=== PATIENT | male | born 1945 | race Two or more races ===

== ENCOUNTER 2025-02-18 10:16 | Inpatient (IN) | payer MEDICARE ==
[~2025-02-18] VITALS: Ht 170.2 cm; Wt 87.0 kg
[2025-02-18] VITALS (9 sets, daily range): BP systolic 133–149; BP diastolic 54–72; PULSE 90–103; RESP 13–21; TEMP 97.4–98.7; O2SAT 90–95
--- NOTE | 2025-02-18 10:55 | ED.PDOC ---
HPI Comments 79y M who presents to the ED via EMS for chief complaint of chest pain. EMS states pt is being transferred for evaluation from [facility] after pt had noted NSTEMI with trop of 3150 last night PM. [place] been [place] and over the past 2x days, he has been having intermittent chest pain episodes and went to [facility] at approx 1230 AM last night. Pt states he has been having intermittent shortness of breath with associated L arm numbness. Pt states he thought symptoms were due to being at high elevation and only went to ED last night PM due to exacerbation of his symptoms. Pt otherwise denies any other symptoms upon arrival to the ED. Chief Complaint: chest pain Time Seen by MD: 10:51 Reviewed Notes: Medications, Allergies Information Source: Patient, Emergency Med Personnel Mode of Arrival: EMS Brought in by: EMS Severity: Moderate Timing: Days Duration: Since onset Prehospital treatment: None Location: Chest (R), Chest (L) Radiation: Arm (L) Quality: Sharp, Pressure Onset: At Rest Cardiac Risk Factors: Hyperlipidemia, HTN PE Risk Factors: None History of: Aortic Disease Modifying Factors: Exertion Associated Signs and Symptoms: SOB Past Medical History PAST MEDICAL HISTORY: High Lipids, HTN Surgical History: Hernia Repair Surgical History (Other): aortic valve repair Family History Family History: Family hx of heart yao Social History Smoker: Cigarettes Alcohol: Occasionally Drugs: Denies Drug Use Lives In: Home Constitutional: denies: chills, diaphoresis, fatigue, fever, malaise, sweats, weakness, others EENTM: denies: blurred vision, double vision, ear bleeding, ear discharge, ear drainage, ear pain, ear ringing, eye pain, eye redness, hearing loss, mouth pain, mouth swelling, nasal discharge, nose bleeding, nose congestion, nose pain, photophobia, tearing, throat pain, throat swelling, voice changes, others Respiratory: reports: shortness of breath; denies: cough, hemoptysis, orthopnea, SOB at rest, SOB with excertion, stridor, wheezing, others Cardiovascular: reports: chest pain; denies: dizzy spells, diaphoresis, Dyspnea on exertion, edema, irregular heart beat, left arm pain, lightheadedness, palpitations, PND, syncope, others Gastrointestinal: denies: abdomen distended, abdominal pain, blood streaked bowels, constipated, diarrhea, dysphagia, difficulty swallowing, hematemesis, melena, nausea, poor appetite, poor fluid intake, rectal bleeding, rectal pain, vomiting, others Genitourinary: denies: burning, dysuria, flank pain, frequency, hematuria, incontinence, penile discharge, penile sore, pain, testicle pain, testicle swelling, urgency, others Neurological: denies: dizziness, fainting, headache, left sided numbness, left sided weakness, numbness, paresthesia, pre-existing deficit, right sided numbness, right sided weakness, seizure, speech problems, tingling, tremors, weakness, others Musculoskeletal: denies: back pain, gout, joint pain, joint swelling, muscle pain, muscle stiffness, neck pain, others Integumetry: denies: bruises, change in color, change in hair/nails, dryness, laceration, lesions, lumps, rash, wounds, others Allergic/Immunocompromised: denies: Difficulty Healing, Frequent Infections, Hives, Itching, others Hematologic/Lymphatic: denies: anemia, blood clots, easy bleeding, easy bruising, swollen glands, others Endocrine: denies: excessive hunger, excessive sweating, excessive thirst, excessive urination, flushing, intolerance to cold, intolerance to heat, unexplained weight gain, unexplained weight loss, others Psychiatric: denies: anxiety, bipolar disorder, depression, hopeless, panic disorder, schizophrenia, sleepless, suicidal, others All Other Systems: Reviewed and Negative Physical Exam General Appearance: Moderate Distress HEENT: Normal ENT Inspection, Pharynx Normal, TMs Normal Neck: Full Range of Motion, Non-Tender, Normal, Normal Inspection Respiratory: Chest Non-Tender, Lungs Clear, No Accessory Muscle Use, No Respiratory Distress, Normal Breath Sounds Cardiovascular: No Edema, No JVD, No Murmur, No Gallop, Normal Peripheral Pulses, Regular Rate/Rhythm Breast Exam: Deferred Gastrointestinal: No Organomegaly, Non Tender, No Pulsatile Mass, Normal Bowel Sounds, Soft Genitalia: Deferred Pelvic: Deferred Rectal: Deferred Extremities: No calf tenderness, Normal capillary refill, Normal inspection, Normal range of motion, Non-tender, No pedal edema Musculoskeletal : Apperance: Normal Neurologic: Alert, appliance technician II-XII nml as Tested, No Motor Deficits, Normal Affect, Normal Mood, No Sensory Deficits Cerebellar Function: Normal Reflexes: Normal Skin: Dry, Normal Color, Warm Lymphatic: No Adenopathy EKG EKG : Pulse Rate (adult): 96 Verbena: Normal Cardiac Rhythm: NSR Block: None Hypertrophy: None ST: Normal Was a procedure done? Was a procedure done?: No CP Differential Dx Differential Diagnosis: A-fib, A-Flutter, Angina, Anxiety / Panic Attack, Electrolyte Disorder, Heart Failure, MS, Sinus Tachycardia Differential Diagnosis: HTN Essential, HTN Accelerated X-Ray, Labs, Meds, VS Vital Signs Date Time Temp Pulse Resp B/P (MAP) Pulse Ox O2 Delivery O2 Flow Rate FiO2 02/18/25 10:55 96 02/18/25 10:18 96 Lab Test 02/18/25 10:20 Range/Units White Blood Count 15.3 H 4.4-10.8 10^3/uL Red Blood Count 4.51 4.5-5.90 10^6/uL Hemoglobin 14.3 13.5-17.5 g/dL Hematocrit 42.2 41.0-53.0 % Mean Corpuscular Volume 93.5 80.0-100.0 fL Mean Corpuscular Hemoglobin 31.7 28.0-32.0 pg Mean Corpuscular Hemoglobin Concent 33.9 32.0-36.0 g/dL Red Cell Distribution Width 13.1 11.8-14.3 % Platelet Count 176 140-450 10^3/uL Mean Platelet Volume 9.3 6.9-10.8 fL Neutrophils (%) (Auto) 85.9 H 37.0-80.0 % Lymphocytes (%) (Auto) 7.5 L 10.0-50.0 % Monocytes (%) (Auto) 6.3 0.0-12.0 % Eosinophils (%) (Auto) 0.2 0.0-7.0 % Basophils (%) (Auto) 0.1 0.0-2.0 % Neutrophils # (Auto) 13.1 H 1.6-8.6 10 ^3/uL Lymphocytes # (Auto) 1.1 0.4-5.4 10 ^3/uL Monocytes # (Auto) 1.0 0-1.3 10 ^3/uL Eosinophils # (Auto) 0 0-0.8 10 ^3/uL Basophils # (Auto) 0 0-0.2 10 ^3/uL Nucleated Red Blood Cells 0.2 % Sodium Level 143 136-145 mmol/L Potassium Level 4.4 3.5-5.1 mmol/L Chloride Level 110 H 98-107 mmol/L Carbon Dioxide Level 21 20-31 mmol/L Anion Gap 12 5-15 Blood Urea Nitrogen 16 9-23 mg/dL Creatinine 1.10 0.700-1.30 mg/dL Glomerular Filtration Rate Calc 68 >90 mL/min BUN/Creatinine Ratio 14.5 10.0-20.0 Serum Glucose 102 74-106 mg/dL Calcium Level 9.1 8.7-10.4 mg/dL Troponin I High Sensitivity 2734 *H </=54 ng/L IV Hep-Lock was established. The CBC and chemistry panel are within normal limits The troponin level is 2734 We did contact Cardiology and they will be consulting on this patient. The patient is being admitted at this time. The results from [place] have, over and the patient will be admitted and seen by the sleeve baster at this time. Images Reviewed?: Images reviewed and evaluated by me Time of 1ST Reevaluation: 11:20 Reevaluation 1ST: Unchanged Patient Education/Counseling: Diagnosis, Treatment, Prognosis Family Education/Counseling: No Family Present SEPSIS Sepsis Screen Physician Orders Heplock Iv (02/18/25 10:33) Vital Signs Date Time Temp Pulse Resp B/P (MAP) Pulse Ox O2 Delivery O2 Flow Rate FiO2 02/18/25 10:55 96 02/18/25 10:18 96 Laboratory Tests Test 02/18/25 10:20 White Blood Count 15.3 10^3/uL (4.4-10.8) H Departure 1 Departure Time of Disposition: 11:22 Impression: Primary Impression: Non-STEMI (non-ST elevated myocardial infarction) Disposition: 09 ADMITTED INPATIENT Admit to: Tele Condition: Fair Critical Care Note Critical Care Time?: Yes (45 min-critical care time only) Stability Stability form required: Yes Unstable for transfer: ICU, CCU, PCU, JENY (Intensive VS monitoring), ED Physician Assesment (Clinical assesment) Heart Score Heart Score: Heart Score Response (Comments) Value History Moderate Suspicious 1 EKG Normal 0 Age >65 2 Risk Factors >3 or Hx ASHD 2 Troponin >3 x's Normal limit 2 Total 7 I personally scribed for URI RIDDLE MD ([email or web address]) on 02/18/25 at 10:55. Electronically submitted by Bryce Ochoa ([email or web address]). URI RIDDLE MD Feb 18, 2025 10:55
[2025-02-18 10:58] LABS: Hematocrit 42.2 % (41.0-53.0); Hemoglobin 14.3 g/dL (13.5-17.5); Mean Corpuscular Hemoglobin 31.7 pg (28.0-32.0); Mean Corpuscular Volume 93.5 fL (80.0-100.0); Nucleated Red Blood Cells % 0.2 %
[2025-02-18 11:07] LABS: Potassium 4.4 mmol/L (3.5-5.1); Sodium 143 mmol/L (136-145)
[2025-02-18 11:08] LABS: Anion Gap 12 (5-15); Calcium 9.1 mg/dL (8.7-10.4); Carbon Dioxide 21 mmol/L (20-31)
[2025-02-18 11:09] LABS: Chloride 110 mmol/L (98-107)
[2025-02-18 11:13] LABS: BUN/Creatinine Ratio 14.5 (10.0-20.0); Blood Urea Nitrogen 16 mg/dL (9-23); Glucose 102 mg/dL (74-106)
--- NOTE | 2025-02-18 11:23 | ECG ---
[facility] Test Date: 2025-02-18 Test Time: 11:22:35 Pat Name: KESHA RAYA Department: ER Room: 0274T Gender: M Paper Deliverer: GP : 1945 Requested By: URI RIDDLE Order Number: [id number] Reading MD: Boo Enamorado Measurements Intervals [place] Rate: 96 P: 80 IL: 266 QRS: 58 QRSD: 91 T: -90 QT: 284 QTc: 359 Interpretive Statements Sinus rhythm Prolonged IL interval Probable LVH with secondary repol abnrm Electronically Signed On 02-19-2025 22:17:21 PDT by Boo Enamorado Please click the below link to view image of tracing.
--- NOTE | 2025-02-18 12:08 | DVHINCON2 ---
Date Seen: Feb 18, 2025 Referring Physician MD Mariposa Reason for Consultation NSTEMI History of Present Illness This is a pleasant 79-year-old male who was transferred from [facility] via EMS to our facility for higher level of care given elevated troponin levels. The patient who is originally from [place] states he flew to [place] with his and have been road tripping since to [facility], [place], and [facility] with an end goal to reach [place], [place] in order to continue onto a cruise trip to the [facility]. While driving he developed an onset of SOB, dizziness, left arm numbness, nausea, and some substernal chest discomfort which prompted to seek further medical attention. Denies any ambulation and admits to prolonged sitting. Blood work from [facility] revealed an unremarkable CXR, BNP 634 pg/mL, Troponin levels at 1.93/2.38/2.50 ng/mL, and 12 lead electrocardiogram revealing a sinus rhythm with a associated first-degree atrioventricular block and inferolateral ST- depression. He was loaded on ASA 324 mg at aforementioned facility. Significant medical history includes severe aortic valve stenosis status post transcatheter aortic valve replacement at [facility] in [place] in 2019 (on ASA), hypertension, and dyslipidemia. Past Medical History Past medical history reviewed. No other significant than mentioned above. Past Surgical History TAVR, 2019 Umbilical hernia repair Family History Family history reviewed. Social History Denies the use of illicit drugs, alcohol, or tobacco use. Allergies: Coded Allergies: Simvastatin (Verified Allergy, Unknown, 02/18/25) Home Meds Home medications reviewed. Review of Systems Constitutional: No symptom reported Ears, Nose, & Throat: No symptom reported Eyes: No symptom reported Neurological: Dizziness Pulmonary/Respiratory: SOB Cardiovascular: Chest pain Gastrointestinal: Nausea Genitourinary: No symptom reported Musculoskeletal: No symptom reported Skin: No symptom reported Psychiatric: No symptom reported Endocrine: No symptom reported Hemotologic/Lymphatic: No symptom reported Vital Signs Vital Signs Date Time Temp Pulse Resp B/P (MAP) Pulse Ox O2 Delivery O2 Flow Rate FiO2 02/18/25 11:10 97.9 97 16 156/50 95 97.9 Physical Exam General Appearance: Cooperative. Well developed. Well nourished. In no acute distress Head Exam: Normal inspection Neck Exam: Normal inspection. Non-tender. Normal alignment Pulmonary/Respiratory: Chest non-tender. Diminished bilateral breath sounds Cardiovascular/Chest: Regular rate and rhythm. S1, S2. Sinus rhythm with T- wave depression to inferolateral leads. Systolic murmurs. No JVD. Peripheral Pulses: 2+ Radial (R). 2+ Radial (L). 2+ Pedal (R). 2+ Pedal (L) Abdominal Exam: Normal bowel sounds. Soft. Ankle Exam: Negative ankle edema Lower extremities: Negative lower extremity edema Neuro/Mental Status: A&O x4. Coherent Thoughts/Psych: Normal thought pattern. Appropriate mood and affect. Good judgement and insight. Pleasant Appearance: In no acute distress Skin Exam: Normal inspection. Normal color. Warm. Dry Labs/Diagnostic Data Labs Test 02/18/25 10:20 Range/Units White Blood Count 15.3 H 4.4-10.8 10^3/uL Red Blood Count 4.51 4.5-5.90 10^6/uL Hemoglobin 14.3 13.5-17.5 g/dL Hematocrit 42.2 41.0-53.0 % Mean Corpuscular Volume 93.5 80.0-100.0 fL Mean Corpuscular Hemoglobin 31.7 28.0-32.0 pg Mean Corpuscular Hemoglobin Concent 33.9 32.0-36.0 g/dL Red Cell Distribution Width 13.1 11.8-14.3 % Platelet Count 176 140-450 10^3/uL Mean Platelet Volume 9.3 6.9-10.8 fL Neutrophils (%) (Auto) 85.9 H 37.0-80.0 % Lymphocytes (%) (Auto) 7.5 L 10.0-50.0 % Monocytes (%) (Auto) 6.3 0.0-12.0 % Eosinophils (%) (Auto) 0.2 0.0-7.0 % Basophils (%) (Auto) 0.1 0.0-2.0 % Neutrophils # (Auto) 13.1 H 1.6-8.6 10 ^3/uL Lymphocytes # (Auto) 1.1 0.4-5.4 10 ^3/uL Monocytes # (Auto) 1.0 0-1.3 10 ^3/uL Eosinophils # (Auto) 0 0-0.8 10 ^3/uL Basophils # (Auto) 0 0-0.2 10 ^3/uL Nucleated Red Blood Cells 0.2 % Sodium Level 143 136-145 mmol/L Potassium Level 4.4 3.5-5.1 mmol/L Chloride Level 110 H 98-107 mmol/L Carbon Dioxide Level 21 20-31 mmol/L Anion Gap 12 5-15 Blood Urea Nitrogen 16 9-23 mg/dL Creatinine 1.10 0.700-1.30 mg/dL Glomerular Filtration Rate Calc 68 >90 mL/min BUN/Creatinine Ratio 14.5 10.0-20.0 Serum Glucose 102 74-106 mg/dL Calcium Level 9.1 8.7-10.4 mg/dL Troponin I High Sensitivity 2734 *H </=54 ng/L Assessment NSTEMI, questionable type 1 Chest pain/SOB rule out PE Rule out structural heart disease Status post TAVR (on ASA) Hypertension Dyslipidemia Plan/Recommendation (Dr. Enamorado) Given recent travels and prolonged sitting we will obtain a CT angio with contrast to rule out a PE. In the meantime, initiate a heparin drip per pharmacy protocol including loading dose. Obtain a transthoracic echocardiogram to evaluate cardiac function and assess RV pressures. In the setting of a negative PE, the patient will be scheduled for a cardiac catheterization and coronary angiogram at first available. All risks and benefits of the procedure were discussed with the patient and at bedside who agree to proceed with in tervention. All questions answered. Initiate renal hydration. Further orders per clinical course. Thank you for allowing us to participate in this patient's care. Please call if you have any questions or concerns. Critical care time: 50 min. This medical document was created using an electronic medical record system with voice recognition software and computerMy Own Med d dictation system. Although this document has been carefully reviewed, there might still be some phonetic and typographical errors. Occasional wrong-word or ``sound-alike substitutions may have occurred due to the inherent limitations of voice recognition software. These areas are purely typographical due to imperfections of the software programs and do not reflect any compromise in the patient's medical care. Please read the chart carefully and recognize, using context, where these substitutions have occurred. Plan discussed with: Patient, Spouse, Other NYHA Physical activity limitations: NA Date of Service: Feb 18, 2025 Billing Provider: ABREU,YEMI SUPERVISOR WINTER Cardiology Common Codes: 79752-BUSRECVT CARE 30-74 MIN YEMI ABREU SUPERVISOR WINTER Feb 18, 2025 12:08
[2025-02-18] MEDS ORDERED: HEPARIN DRIP/D5W 100UNITS/ML 250 ML IV SCH (12:15)
[2025-02-18] MEDS ORDERED: HEPARIN SODIUM (PORCINE) 5000 UNITS/ML 1ML VIAL IV ONE (12:15)
[2025-02-18] MEDS: IOHEXOL 350 MG/ML 100ML IJ ONE (12:24)
--- NOTE | 2025-02-18 13:14 | DVH ---
Bilateral lower extremity venous duplex Clinical History: Edema Comparison: None Findings: Duplex Doppler evaluation of the deep venous systems of both lower extremities from the common femora l veins to the popliteal veins including color Doppler and spectral/pulsed waveform analysis was perf ormed. RIGHT SIDE: The common femoral vein demonstrates appropriate compressibility and waveform variability. There is compressibility/patency of the great saphenous vein at the proximal thigh. The femoral vein demonstrates appropriate compressibility and waveform variability. The deep femoral vein demonstrates appropriate compressibility and waveform variability. The popliteal vein demonstrates appropriate compressibility and waveform variability. There is normal compressibility at the tibioperoneal trunk. LEFT SIDE: The common femoral vein demonstrates appropriate compressibility and waveform variability. There is compressibility/patency of the great saphenous vein at the proximal thigh. The femoral vein demonstrates appropriate compressibility and waveform variability. The deep femoral vein demonstrates appropriate compressibility and waveform variability. The popliteal vein demonstrates appropriate compressibility and waveform variability. There is normal compressibility at the tibioperoneal trunk. IMPRESSION: No right or left femoropopliteal venous thrombosis. If clinical concern/symptoms persist or worsen, short-interval follow-up study is suggested. END IMPRESSION:
[2025-02-18 13:26] LABS: Hematocrit 42.9 % (41.0-53.0); Hemoglobin 14.7 g/dL (13.5-17.5); Mean Corpuscular Hemoglobin 31.9 pg (28.0-32.0); Mean Corpuscular Volume 93.1 fL (80.0-100.0); Nucleated Red Blood Cells % 0.1 %
[2025-02-18 13:38] LABS: Triglycerides 93.0 mg/dL (< 150)
[2025-02-18 13:39] LABS: Magnesium 2.0 mg/dL (1.6-2.6)
[2025-02-18 13:40] LABS: Cholesterol 157.0 mg/dL (< 200); HDL Cholesterol 54.0 mg/dL (40-59)
[2025-02-18 13:41] LABS: INR 1.0 (0.9-1.15); Partial Thromboplastin Time 28.1 SEC (24.5-34.5); Prothrombin Time 10.6 sec (9.3-11.8)
[2025-02-18] MEDS ORDERED: NITROGLYCERIN 0.4 MG SL TAB SL PRN ×2 (14:00→19:30)
[2025-02-18] MEDS ORDERED: MORPHINE SULFATE 4 MG/ML SYR/VIAL IV PRN (14:30)
--- NOTE | 2025-02-18 14:47 | DVH ---
CTA Chest with intravenous contrast INDICATION: Chest pain/SOB rule out PE COMPARISON: None TECHNIQUE: Multidetector spiral CTA of the chest was performed of the chest with intravenous contrast . PULMONARY ANGIOGRAPHY PROTOCOL was utilized using a bolus-tracking technique centered on the main p ulmonary artery. Axial, coronal and sagittal multiplanar and MIP reformats were performed. Radiation Dose : 1. Chest: Dose-length product is 99 mGy*cm The dose indicators for CT are the volume Computed Tomography (CT) Dose Index (CTDIvol) and the Dose Length Product (DLP), and are measured in units of mGy and mGy-cm, respectively. These indicators are not patient dose, but values generated from the CT scanner acquisition factors. The report includes radiation exposure data for exposures received during this examination. Findings: Pulmonary artery: No pulmonary embolism Lower neck: Normal thyroid. Lungs: Bibasilar consolidations may reflect pneumonia or aspiration. Heart/Vascular Structures: Normal heart size. No pericardial effusion. Lymph Nodes: No adenopathy Pleura: Small bilateral pleural effusions. Musculoskeletal: No acute osseous abnormality. Soft tissues: Normal. Upper abdomen: Limited portions of the upper abdomen are unremarkable. IMPRESSION: 1. No pulmonary embolism. 2. Bibasilar consolidations may reflect pneumonia or aspiration. 3. Small bilateral pleural effusions.
[2025-02-18] MEDS: ANGIOMAX 250 MG VIAL IV ONE ×2 (16:42→18:16)
[2025-02-18] MEDS: fentaNYL CITRATE 100 MCG/2 ML VL ONE (16:43)
[2025-02-18] MEDS: HEPARIN SODIUM (PORCINE) 5000 UNITS/ML 1ML VIAL ONE (16:43)
[2025-02-18] MEDS: MIDAZOLAM HCL 2MG/2ML 2ml VIAL (1mg/ml) ONE (16:43)
[2025-02-18] MEDS: SODIUM CHL 0.9% 50 ML ONE ×2 (16:43→18:16)
[2025-02-18] MEDS: VERAPAMIL 2.5MG/ML INJ 2ML VIAL IV ONE (16:43)
[2025-02-18] MEDS: LIDOCAINE 2%HCL (LOCAL ANESTH.) INJ 20ML MDV ONE (16:44)
[2025-02-18] MEDS: IODIXANOL 320MG/ML 100ML BTL IV ONE ×3 (16:44→18:50)
[2025-02-18] MEDS: SODIUM CHLORIDE 0.9% 500 ML IV ONE (18:00)
[2025-02-18] MEDS: CLOPIDOGREL BISULFATE 75 MG TAB ONE (19:12)
[2025-02-18] MEDS ORDERED: MORPHINE SULFATE INJ 2 MG/ml SYRG IV PRN (19:30)
[2025-02-18] MEDS: METOPROLOL SUCCINATE XL 50 MG TAB PO ONE (19:45)
--- NOTE | 2025-02-18 19:50 | DVHSR ---
APPROVED REPORT EXAM: Two-dimensional and M-mode echocardiogram with Doppler and color Doppler. Blood Pressure: 155/56 mmHg INDICATION PE vs CAD Surgery/Intervention Valve Replacement: Bioprosthetic Type: TAVR RISK FACTORS Height: 5'8", Weight: 175 DIMENSIONS LVDd5.1 (3.8-5.7cm)LA (2D)3.8 (1.9-4.0cm)Aortic Root (2.0-3.7cm) LVDs3.4 (2.5-4.0cm)LA (MM) (1.9-4.0cm)Aortic Cusp Exc (1.5-2.0cm) EF (%) 55.0 (55-70%)Rt. Atrium3.7 (1.9-4.0cm)Asc. Aorta cm IVSd1.3 (0.7-1.1cm)RV (D)3.7 (1.8-2.4cm) PWd1.1 (0.7-1.1cm) Mitral Valve MitralMitral Stenosis E/A ratio0.02D MVAcm2 Aortic Valve Aortic ValveAortic Stenosis V11.16m/Gwyn Mean GR.11mmHg V22.50m/Gwyn Peak GR.25mmHg LVOT Diameter1.7 (1.8-2.4cm)Doppler AVA1.05cm2 Pulmonic Valve V20.65m/s Other Information Technically limited study due to body habitus. Conclusion Technically good study. Sinus rhythm. LV enlargement. Mild RV enlargement. There is a TAVR valve present. There was no apparent dysfunction. The mitral tricuspid and pulmonic or structurally normal. Left ventricular function mildly diminished. There was a dilated left ventricle. EF is about 45% wi th mild global hypokinesis. Normal RV function. A peak gradient of 25 mmHg across the aortic valve is noted consistent with the prosthetic valve. Me an gradient is 11 mmHg. No apparent dysfunction noted. Mild tricuspid regurgitation. No pericardial effusion masses or vegetations discernible.
--- NOTE | 2025-02-18 19:57 | DVHOP2 ---
Operative Report - 2 Report Details Date: 02/18/25 Preop Diagnosis: CAD Postop Diagnosis: CAD Surgeon: Surya Enamorado MD Anesthesiologist: Conscious sedation Anesthesia: Mac, Local Consent: The patient was informed of the risks and benefits of the procedure. These include but are not limited to complications of anesthesia, postoperative infection, incomplete relief of symptoms, recurrence of symptoms, damage to blood vessels, nerves and tendons, deep venous thrombosis, pulmonary embolism and possible need for repeat surgery in the future. Complications: No complications Findings: Left main disease and LAD disease. Indications for Surgery: Shortness of breath and acute coronary syndrome. Name of Procedure Performed Left heart catheterization bilateral cine coronary angiography. Left ventriculography. PTCA and stenting of the left main. PTCA and stenting of the LAD and diagonal. Intravascular ultrasound of left main and LAD. Procedure Details Procedure Details: Prior local anesthesia with 2% lidocaine to the right wrist and full informed consent obtained the patient was prepped and draped in usual fashion followed by placement of a six Icelandic sheath into the radial artery. We then placed a multipurpose catheter into the RCA left main left ventricle. After evaluation proceeded to perform angioplasty and intravascular ultrasound of left main and LAD. Hemodynamics aortic blood pressure was 110/70 end-diastolic pressure was 12. There was no gradient across the aortic valve on pullback. Coronary anatomy. The RCA is a large vessel it is normal in its proximal mid and distal segments. The PDA and the posterolateral branches are normal. The left main has an ostial 80% stenosis on angiographic perspective. I ntravascular ultrasound revealed less than a five mm squared area. The left anterior descending coronary artery has a hazy lesion at the level of the diagonal. There was WALTER two flow. The diagonal has mild plaquing. The circumflex has two obtuse marginals free of significant disease. Ventriculography in the CANNON projection shows an EF of about 45% with global hypokinesis. Angioplasty was performed for which a three five EBU guide was placed through was struck within the aortic valve into the left main. A Specter wire was then placed across the area of stenosis in an intravascular ultrasound device was used to evaluate the LAD and left main. We noticed a significant stenosis in the LAD. We proceeded to place a 4-0 18 rosalind [place] stent to the LAD. This was performed at a proximally 16 atmospheres. We verified with the volcano ultrasound device that there was excellent apposition of the stent with the LAD. We then performed stenting of the left main. We placed a 4-0 by 8 mm Medtronic stent and we post dilated with a noncompliant 5 mm Euphora stent. This was inflated to approximately 18 atmospheres. We noticed a residual lesion in the diagonal. We performed angioplasty of the diagonal through the struts. There was notable improvement in flow. Impression: Successful PTCA stenting of the left main and LAD post intravascular ultrasound evaluation. Mildly decreased left ventricular ejection fraction. Mildly elevated left ventricular end-diastolic pressure at rest. Recommendations: Dual antiplatelet therapy. Continue risk factor modification. Condition Good Disposition Still a Patient Date of Service: Feb 18, 2025 Billing Provider: SURYA ENAMORADO Sr., MD Cardiology Common Codes: 96692-[id number] INP/OBS CARE (High) Cardiology Procedure Codes: 64314 -PTCA W/STENT PLACEMENT (Intravascular ultrasound of the left main and LAD.), 44674-AXSU HEART CATH W/INTRA INJ Peripheral Add ons: [id number] TIBIAL/PERON ARTERY SURYA ENAMORADO Sr., MD Feb 18, 2025 19:57
--- NOTE | 2025-02-18 20:05 | DVHHPRES ---
History of Present Illness Resident Creating Document: PEDRO SALAS History of Present Illness Patient is a 79-year-old male with past medical history of hypertension, hyperlipidemia and prior aortic valve replacement , presented to [facility] ED with complaint of shortness of breath. Patient reports that he had shortness of breath that began 2 days ago after prolonged driving with significant altitude change. He described the shortness breath as requiring deeper breaths and states that it worsened when lying flat but improve when sitting up. He denies experiencing typical chest pain but reports mild chest pressure in sensation of discomfort. He also complained with mild dizziness, light coughing without phlegm. Blood work from [facility] revealed an unremarkable CXR, BNP 634 pg/mL, Troponin levels at 1.93/2.38/2.50 ng/mL, and 12 lead electrocardiogram revealing a sinus rhythm with a associated first-degree atrioventricular block and inferolateral ST-depression. He was loaded on ASA 324 mg at aforementioned facility. Patient denies sweating, nausea and vomiting. Cardiovascular: HTN, hyperipidemia Past Surgical History severe aortic valve stenosis status post transcatheter aortic valve replacement at [facility] in [place] in 2019 (on ASA), Umbilical hernia repair Family History: None Smoke: No ALCOHOL: none Drugs: None Review of Systems Review of Systems Eyes: No Pain, No Vision change, No Conjunctivae inflammation, No Eyelid inflammation, No Other, No Redness ENT: No Ear pain, No Ear discharge, No Nose pain, No Nose discharge, No Nose congestion, No Mouth pain, No Mouth swelling, No Throat pain, No Throat sw elling, No Other Cardiovascular: Chest Pain, No Palpitations, No Orthopnea, No Paroxysmal No Dyspnea, No Edema, No Lt Headedness, No Other Respiratory: No Cough, No Dry, Shortness of breath, SOB with exertion, No Wheezing, No Hemoptysis, No Pleuritic Pain, No Sputum, No Other Gastrointestinal: Nausea, No Vomiting, No Abdominal Pain, No Diarrhea, No Constipation, No Melena, No Hematochezia, No Other Genitourinary: No Dysuria, No Frequency, No Incontinence, No Hematuria, No Retention, No Other Musculoskeletal: No other, No neck pain, No shoulder pain, No arm pain, No back pain, No hand pain, No leg pain, No foot pain Skin: No Rash, No Lesions, No Jaundice, No Bruising, No Other Allergies: Coded Allergies: Simvastatin (Verified Allergy, Unknown, 02/18/25) Medications Current Medications Medications Dose Ordered Sig/Viktoria Route Start Time Stop Time Status Last Admin Dose Admin Nitroglycerin 0.4 mg Q5MINP PRN SL 02/18/25 14:00 Morphine Sulfate 2 mg Q30M PRN IV 02/18/25 14:30 Nitroglycerin 0.4 mg Q5MINP PRN SL 02/18/25 19:30 UNV Morphine Sulfate 2 mg Q30M PRN IV 02/18/25 19:30 UNV Aspirin 81 mg DAILY PO 02/19/25 10:00 UNV Clopidogrel Bisulfate 75 mg DAILY PO 02/19/25 10:00 UNV Levalbuterol HCl 0.625 mg Q6HWA [facility] 02/19/25 06:00 UNV Ceftriaxone Sodium 50 ml @ 100 mls/hr DAILY@09 IV 02/19/25 09:00 UNV Doxycycline Monohydrate 100 mg Q12HR PO 02/18/25 22:00 UNV Ipratropium [place] 0.5 mg Q6HWA [facility] 02/19/25 06:00 UNV Enoxaparin Sodium 40 mg DAILY SC 02/19/25 10:00 UNV Metoprolol Succinate 25 mg DAILY PO 02/19/25 10:00 UNV Atorvastatin Calcium 80 mg HS PO 02/18/25 22:00 UNV Exam Vital Signs Vital Signs Date Time Temp Pulse Resp B/P (MAP) Pulse Ox O2 Delivery O2 Flow Rate FiO2 02/18/25 16:43 137/68 02/18/25 13:00 102 12 94 02/18/25 11:21 98.0 98.0 02/18/25 11:20 Nasal Cannula* 2 28 Exam General Appearance: Cooperative. Well developed. Well nourished. NAD Head Exam: Normal inspection Neck Exam: Normal inspection. Non-tender. Normal alignment Pulmonary/Respiratory: Chest non-tender. Clear bilateral breath sounds, no crackles, no wheezing. Cardiovascular/Chest: Regular rate and rhythm. No murmurs. No JVD. Peripheral Pulses: 2+ Radial (R). 2+ Radial (L). 2+ Pedal (R). 2+ Pedal (L) Abdominal Exam: Normal bowel sounds. Soft. normal abdomen, no visible veins, Nontender. No hepatospenomegaly. No masses Ankle Exam: Negative ankle edema Lower extremities: Negative lower extremity edema Neuro/Mental Status: A&O x4. Coherent. Thoughts/Psych: Normal thought pattern. Appropriate mood and affect. Good judgement and insight Skin Exam: Normal inspection. Normal color. Warm. Dry Labs/Xrays Labs Test 02/18/25 13:14 02/18/25 10:20 Range/Units White Blood Count 15.6 H 4.4-10.8 10^3/uL Red Blood Count 4.61 4.5-5.90 10^6/uL Hemoglobin 14.7 13.5-17.5 g/dL Hematocrit 42.9 41.0-53.0 % Mean Corpuscular Volume 93.1 80.0-100.0 fL Mean Corpuscular Hemoglobin 31.9 28.0-32.0 pg Mean Corpuscular Hemoglobin Concent 34.3 32.0-36.0 g/dL Red Cell Distribution Width 13.5 11.8-14.3 % Platelet Count 177 140-450 10^3/uL Mean Platelet Volume 8.9 6.9-10.8 fL Neutrophils (%) (Auto) 86.4 H 37.0-80.0 % Lymphocytes (%) (Auto) 6.4 L 10.0-50.0 % Monocytes (%) (Auto) 6.9 0.0-12.0 % Eosinophils (%) (Auto) 0.1 0.0-7.0 % Basophils (%) (Auto) 0.2 0.0-2.0 % Neutrophils # (Auto) 13.5 H 1.6-8.6 10 ^3/uL Lymphocytes # (Auto) 1.0 0.4-5.4 10 ^3/uL Monocytes # (Auto) 1.1 0-1.3 10 ^3/uL Eosinophils # (Auto) 0 0-0.8 10 ^3/uL Basophils # (Auto) 0 0-0.2 10 ^3/uL Nucleated Red Blood Cells 0.1 % Prothrombin Time 10.6 9.3-11.8 sec Prothrombin Time INR 1.0 0.9-1.15 Activated Partial Thromboplast Time 28.1 24.5-34.5 SEC Magnesium Level 2.0 1.6-2.6 mg/dL B-Type Natriuretic Peptide 993.70 0-100 pg/mL Triglycerides Level 93 < 150 mg/dL Cholesterol Level 157 < 200 mg/dL LDL Cholesterol 94 < 100 mg/dL HDL Cholesterol 54 40-59 mg/dL Thyroid Stimulating Hormone (TSH) 2.95 0.55-4.78 uIU/mL Sodium Level 143 136-145 mmol/L Potassium Level 4.4 3.5-5.1 mmol/L Chloride Level 110 H 98-107 mmol/L Carbon Dioxide Level 21 20-31 mmol/L Anion Gap 12 5-15 Blood Urea Nitrogen 16 9-23 mg/dL Creatinine 1.10 0.700-1.30 mg/dL Glomerular Filtration Rate Calc 68 >90 mL/min BUN/Creatinine Ratio 14.5 10.0-20.0 Serum Glucose 102 74-106 mg/dL Calcium Level 9.1 8.7-10.4 mg/dL Troponin I High Sensitivity 2734 *H </=54 ng/L SEPSIS Sepsis Screen Date sepsis recognized/suspect: Feb 18, 2025 Time Sepsis recognized/suspect: 1119 Recent Procedure: No On Antibiotic Therapy: No Respiratory Rate >20: No Heart Rate >90: Yes Temp<36 C (96.8 F) or >38.3 C: No SBP <90 or MAP <65 mmHG: No New Acute Mental Status Change: No Is the patient on CPAP, BIPAP,: No Physician Orders Bilat Lower Dvt (02/18/25 12:08) Ct Angio Chest Contrast (02/18/25 12:08) Echo 2d Mode Cardiac Dop (02/18/25 13:42) Nitroglycerin Sublingual (Ntrostat Subli (02/18/25 14:00) Notify Md Of Changes From Base (02/18/25 13:48) Manager Urgent Care For 24 Hours (02/18/25 13:48) Emergency Dysrhythmia Protocol (02/18/25 13:48) Rhythm Strips Once Every Shift (02/18/25 13:48) Oxygen By Nasal Cannula (02/18/25 13:48) Cl Left Heart Cath (02/18/25 13:55) Morphine Sulfate Injection (02/18/25 14:30) Heparin Per Pharmacy Protocol (02/18/25 18:02) Admit (02/18/25 19:27) Nitroglycerin Sublingual (Ntrostat Subli (02/18/25 19:30) Morphine Sulfate Injection (02/18/25 19:30) Oxygen By Nasal Cannula (02/18/25:27) Stat Ekg For Chest Pain (02/18/25:) Notify Of Changes From Base (02/18/25 19:27) Manager Urgent Care For 24 Hours (02/18/25 19:27) Emergency Dysrhythmia Protocol (02/18/25:27) Rhythm Strips Once Every Shift (02/18/25 19:27) Aspirin Tablet (02/19/25 10:00) Clopidogrel Bisulfate (Plavix) (02/19/25 10:00) Respiratory Culture W/ Gs (02/18/25:) Levalbuterol Hcl (Xopenex Medneb) (02/19/25 06:00) Ceftriaxone 1gm/50ml (Rocephin) (02/18/25 19:30) Ceftriaxone 1gm/50ml (Rocephin) (02/19/25 09:00) Doxycycline Tablet (Vibramycin Tablet) (02/18/25 22:00) Ipratropium Medneb (Atrovent Medneb) (02/19/25 06:00) Enoxaparin Sodium (Lovenox) (02/19/25 10:00) Metoprolol Xl Succinate (Toprol Xl) (02/18/25 19:45) Metoprolol Xl Succinate (Toprol Xl) (02/19/25 10:00) Atorvastatin (Lipitor) (02/18/25 22:00) Vital Signs Date Time Temp Pulse Resp B/P (MAP) Pulse Ox O2 Delivery O2 Flow Rate FiO2 02/18/25 16:43 137/68 02/18/25 13:00 102 12 155/56 (89) 94 02/18/25 12:00 100 12 152/59 (90) 94 Laboratory Tests Test 02/18/25 10:20 02/18/25 13:14 White Blood Count 15.3 10^3/uL (4.4-10.8) H 15.6 10^3/uL (4.4-10.8) H Medications Medications Dose Ordered Sig/Viktoria Route Start Time Stop Time Status Last Admin Dose Admin Aspirin 325 mg STK-MED ONCE .ROUTE 02/18/25 19:13 02/18/25 19:08 DC 02/18/25 19:13 325 MG Bivalirudin 250 mg STK-MED ONCE IV 02/18/25 16:42 02/18/25 16:38 DC 02/18/25 16:42 250 MG Bivalirudin 250 mg STK-MED ONCE IV 02/18/25 18:16 02/18/25 18:12 DC 02/18/25 18:16 250 MG Clopidogrel Bisulfate 600 mg STK-MED ONCE .ROUTE 02/18/25 19:12 02/18/25 19:08 DC 02/18/25 19:12 600 MG Fentanyl Citrate 100 mcg STK-MED ONCE .ROUTE 02/18/25 16:43 02/18/25 16:39 DC 02/18/25 16:43 100 MCG Iodixanol 32,000 mg STK-MED ONCE IV 02/18/25 18:50 02/18/25 18:46 DC 02/18/25 18:50 32,000 MG Midazolam HCl 2 mg STK-MED ONCE .ROUTE 02/18/25 16:43 02/18/25 16:39 DC 02/18/25 16:43 1 MG Sodium Chloride 50 ml @ ud STK-MED ONCE .ROUTE 02/18/25 16:43 02/18/25 16:39 DC 02/18/25 16:43 28 MLS/HR Sodium Chloride 50 ml @ ud STK-MED ONCE .ROUTE 02/18/25 18:16 02/18/25 18:12 DC 02/18/25 18:16 28 MLS/HR Sodium Chloride 500 ml @ 500 mls/hr Q1H ONCE IV 02/18/25 15:00 02/18/25 16:17 DC 02/18/25 18:00 500 MLS/HR Assessment/Plan Assessment/Plan # NSTEMI, type 1 # CAD s/p PCI with 2 stents # h/o Status post TAVR (on ASA) # hypertensive heart disease # rule out heart failure - EKG showed ST depression in inferolateral leads, with first-degree heart block - elevated troponins - cardiology consulted and the patient was taken to dairy laboratory technician where he underwent percutaneous coronary intervention - aspirin and Plavix - high-dose statin - metoprolol succinate - echocardiogram pending # pneumonia likely d/t gram +/- bacteria - CT chest showed bilateral lower lobe consolidation and small pleural effusions -O2 supplement -IV antibiotic ceftriaxone and doxycycline -DuoNebs q.6 hours DVT prophylaxis: Lovenox 40mg Goals of care discussed with the patient: Full code, discussed for >41 minutes on 02/18/[address] Hendricks Plan discussed with: Patient Date of Service: Feb 18, 2025 Billing Provider: CARMELITA HENDRICKS MD Common Visit Codes: [id number] INP/OBS CARE (HIGH) Secondary Visit Codes: [id number] CARE PLAN 30 MINUTES PEDRO SALAS RESIDENT Feb 18, 2025 20:05 CARMELITA HENDRICKS MD Feb 19, 2025 11:18
[2025-02-18] MEDS: ONDANSETRON HCL 4 MG/2 ML VIAL IV PRN (20:20)
[2025-02-18] MEDS: ONDANSETRON HCL 4 MG/2 ML VIAL ONE (20:20)
[2025-02-18] MEDS: SODIUM CHLORIDE 0.9% 1,000 ML IV ONE ×2 (21:32→22:45)
[2025-02-18] MEDS: ATORVASTATIN 20 MG TAB PO SCH (22:00)
[2025-02-18] MEDS: DOXYCYCLINE 100 MG TAB/CAP PO SCH (22:00)
[2025-02-18] MEDS ORDERED: BIOT10004 PO (22:27)
[2025-02-18] MEDS ORDERED: LISI20TA56 PO (22:27)
[2025-02-18] MEDS ORDERED: LOVA40TA72 PO (22:27)
[2025-02-18] MEDS ORDERED: ASPI-543 PO (22:27)
[2025-02-18] MEDS ORDERED: CHOL20007 PO (22:27)
[2025-02-19] VITALS (15 sets, daily range): BP systolic 118–129; BP diastolic 50–71; PULSE 75–96; RESP 16–20; TEMP 97.4–98.5; O2SAT 92–100
[2025-02-19 05:23] LABS: COVID19 ANTIGEN SOFIA FIA NEGATIVE (NEGATIVE)
[2025-02-19] MEDS: IPRATROPIUM BROM 0.5 MG/2.5ML INH SOL NEB SCH (05:55)
[2025-02-19] MEDS: LEVALBUTEROL HCL 1.25 MG/3 ML NEB NEB SCH (05:56)
[2025-02-19 06:14] LABS: Hematocrit 38.3 % (41.0-53.0); Hemoglobin 12.8 g/dL (13.5-17.5); Mean Corpuscular Hemoglobin 31.7 pg (28.0-32.0); Mean Corpuscular Volume 94.6 fL (80.0-100.0); Nucleated Red Blood Cells % 0.0 %
[2025-02-19 06:29] LABS: Potassium 4.0 mmol/L (3.5-5.1); Sodium 139 mmol/L (136-145)
[2025-02-19 06:30] LABS: Anion Gap 12 (5-15)
[2025-02-19 06:32] LABS: Calcium 8.1 mg/dL (8.7-10.4); Carbon Dioxide 18 mmol/L (20-31); Chloride 109 mmol/L (98-107)
[2025-02-19 06:35] LABS: Glucose 101 mg/dL (74-106)
[2025-02-19 06:36] LABS: BUN/Creatinine Ratio 12.7 (10.0-20.0); Blood Urea Nitrogen 16 mg/dL (9-23)
[2025-02-19] MEDS: ENOXAPARIN SOD 40 MG/0.4 ML SYRINGE SC SCH (09:15)
[2025-02-19] MEDS: CLOPIDOGREL BISULFATE 75 MG TAB PO SCH (09:16)
[2025-02-19] MEDS: METOPROLOL SUCCINATE XL 50 MG TAB PO SCH (09:16)
[2025-02-19] MEDS: FUROSEMIDE 40 MG/4 ML VIAL IV ONE (09:26)
--- NOTE | 2025-02-19 11:29 | DVHPN2 ---
Consult Progress Note Subjective Other Systems: Patient is in sinus tachycardia at time of assessment. Denies any cardiac symptoms. Objective vital signs Vital Sign Date Time Temp Pulse Resp B/P (MAP) Pulse Ox O2 Delivery O2 Flow Rate FiO2 02/19/25 09:26 129/71 02/19/25 09:16 82 02/19/25 09:00 98.0 18 94 98.0 02/19/25 05:55 Nasal Cannula 3.0 02/19/25 05:55 32 Total Intake and Output 02/18/25 02/18/25 02/19/25 15:00 23:00 07:00 Intake Total 720 ml Balance 720 ml medications Current Medications Medications Dose Ordered Sig/Viktoria Route Start Time Stop Time Status Last Admin Dose Admin Nitroglycerin 0.4 mg Q5MINP PRN SL 02/18/25 14:00 Morphine Sulfate 2 mg Q30M PRN IV 02/18/25 14:30 Nitroglycerin 0.4 mg Q5MINP PRN SL 02/18/25 19:30 UNV Morphine Sulfate 2 mg Q30M PRN IV 02/18/25 19:30 UNV Aspirin 81 mg DAILY PO 02/19/25 10:00 02/19/25 09:15 81 MG Clopidogrel Bisulfate 75 mg DAILY PO 02/19/25 10:00 02/19/25 09:16 75 MG Levalbuterol HCl 0.625 mg Q6HWA [facility] 02/19/25 06:00 02/19/25 05:56 0.625 MG Ceftriaxone Sodium 50 ml @ 100 mls/hr DAILY@09 IV 02/19/25 09:00 02/19/25 09:15 100 MLS/HR Doxycycline Monohydrate 100 mg Q12HR PO 02/18/25 22:00 02/19/25 09:15 100 MG Ipratropium [place] 0.5 mg Q6HWA [facility] 02/19/25 06:00 02/19/25 05:55 0.5 MG Enoxaparin Sodium 40 mg DAILY SC 02/19/25 10:00 02/19/25 09:15 40 MG Metoprolol Succinate 25 mg DAILY PO 02/19/25 10:00 02/19/25 09:16 25 MG Atorvastatin Calcium 80 mg HS PO 02/18/25 22:00 02/18/25 22:00 80 MG Ondansetron HCl 4 mg Q6HPRN PRN IV 02/18/25 20:15 02/18/25 20:20 4 MG Examination: GENERAL:Normal, LUNGS:Normal, CVS:Normal, NEURO:Normal laboratory and microbiology Laboratory Tests 02/19/25 05:13 Test 02/19/25 05:13 Range/Units Serum Glucose 101 74-106 mg/dL Problem List/Assessment/Plan Problem List/Assessment/Plan NSTEMI type 1 status post PTCA and stenting of the left main and LAD Chest pain/SOB, ruled out PE Chronic HFmrEF, NYHA class III Status post TAVR (on ASA) Hypertension Dyslipidemia Pneumonia Obesity Plan/Recommendations (Dr. Enamorado): The patient underwent a coronary angiogram with left heart catheterization in which there was successful PTCA stenting of the left main and LAD. We will recommend to continue with dual antiplatelet therapy and lipid-lowering agent. A transthoracic echocardiogram reveals EF of approximately 45% with mild global hypokinesis. Initiate guideline directed medical therapy for CHF as tolerated. The patient has a primary hiv nurse in [place] where he lives. He has been educated to follow up with his hiv nurse as soon as he gets back home to [place]. There is no further inpatient cardiac workup indicated at this time. The patient states he will follow up with his primary hiv nurse post discharge. Thank you for allowing us to care for this patient. Please call with any questions or concerns. This medical document was created using an electronic medical record system with voice recognition software and computerized dictation system. Although this document has been carefully reviewed, there might still be some phonetic and typographical errors. Occasional wrong-word or ``sound-alike substitutions may have occurred due to the inherent limitations of voice recognition software. These areas are purely typographical due to imperfections of the software programs and do not reflect any compromise in the patient's medical care. Please read the chart carefully and recognize, using context, where these substitutions have occurred. Plan discussed with: Patient Date of Service: Feb 19, 2025 Billing Provider: PRISCILLA HERNANDEZ Common Visit Codes: [id number] INP/OBS CARE(HIGH) PRISCILLA HERNANDEZ Feb 19, 2025 11:29
--- NOTE | 2025-02-19 17:25 | DVHPNRES ---
Progress Note Date Seen: Feb 19, 2025 Resident Creating Document: PEDRO SALAS Medical Necessity Reason Pt with a Central, PICC or Fol: No Subjective Review of Systems Patient is a 79-year-old male with past medical history of hypertension, hyperlipidemia and prior aortic valve replacement , presented to [facility] ED with complaint of shortness of breath. Patient reports that he had shortness of breath that began 2 days ago after prolonged driving with significant altitude change. He described the shortness breath as requiring deeper breaths and states that it worsened when lying flat but improve when sitting up. He denies experiencing typical chest pain but reports mild chest pressure in sensation of discomfort. He also complained with mild dizziness, light coughing without phlegm. Blood work from [facility] revealed an unremarkable CXR, BNP 634 pg/mL, Troponin levels at 1.93/2.38/2.50 ng/mL, and 12 lead electrocardiogram revealing a sinus rhythm with a associated first-degree atrioventricular block and inferolateral ST-depression. He was loaded on ASA 324 mg at aforementioned facility. Patient denies sweating, nausea and vomiting. Past surgical history: severe aortic valve stenosis status post transcatheter aortic valve replacement at [facility] in [place] in 2019 (on ASA), Umbilical hernia repair Social & Personal history: Denies smoking, alcohol, drug use Patient seen and examined at bedside. Patient is alert and oriented to time, place person and responding to all questions. Eyes: No Pain, No Vision change, No Conjunctivae inflammation, No Eyelid inflammation, No Other, No Redness ENT: No Ear pain, No Ear discharge, No Nose pain, No Nose discharge, No Nose congestion, No Mouth pain, No Mouth swelling, No Throat pain, No Throat swelling, No Other Cardiovascular: Chest Pain, No Palpitations, No Orthopnea, No Paroxysmal No Dyspnea, No Edema, No Lt Headedness, No Other Respiratory: No Cough, No Dry, Shortness of breath, SOB with exertion, No Wheezing, No Hemoptysis, No Pleuritic Pain, No Sputum, No Other Gastrointestinal: Nausea, No Vomiting, No Abdominal Pain, No Diarrhea, No Constipation, No Melena, No Hematochezia, No Other Genitourinary: No Dysuria, No Frequency, No Incontinence, No Hematuria, No Retention, No Other Musculoskeletal: No other, No neck pain, No shoulder pain, No arm pain, No back pain, No hand pain, No leg pain, No foot pain Skin: No Rash, No Lesions, No Jaundice, No Bruising, No Other Objective vital signs Vital Sign Date Time Temp Pulse Resp B/P (MAP) Pulse Ox O2 Delivery O2 Flow Rate FiO2 02/19/25 13:00 98.5 96 17 120/52 (74) 95 98.5 02/19/25 08:00 Nasal Cannula* 2 28 Total Intake and Output 02/18/25 02/18/25 02/19/25 15:00 23:00 07:00 Intake Total 720 ml Balance 720 ml medications Current Medications Medications Dose Ordered Sig/Viktoria Route Start Time Stop Time Status Last Admin Dose Admin Nitroglycerin 0.4 mg Q5MINP PRN SL 02/18/25 14:00 Morphine Sulfate 2 mg Q30M PRN IV 02/18/25 14:30 Nitroglycerin 0.4 mg Q5MINP PRN SL 02/18/25 19:30 UNV Morphine Sulfate 2 mg Q30M PRN IV 02/18/25 19:30 UNV Aspirin 81 mg DAILY PO 02/19/25 10:00 02/19/25 09:15 81 MG Clopidogrel Bisulfate 75 mg DAILY PO 02/19/25 10:00 02/19/25 09:16 75 MG Levalbuterol HCl 0.625 mg Q6HWA [facility] 02/19/25 06:00 02/19/25 11:33 0.625 MG Ceftriaxone Sodium 50 ml @ 100 mls/hr DAILY@09 IV 02/19/25 09:00 02/19/25 09:15 100 MLS/HR Doxycycline Monohydrate 100 mg Q12HR PO 02/18/25 22:00 02/19/25 09:15 100 MG Ipratropium [place] 0.5 mg Q6HWA [facility] 02/19/25 06:00 02/19/25 11:33 0.5 MG Enoxaparin Sodium 40 mg DAILY SC 02/19/25 10:00 02/19/25 09:15 40 MG Metoprolol Succinate 25 mg DAILY PO 02/19/25 10:00 02/19/25 09:16 25 MG Atorvastatin Calcium 80 mg HS PO 02/18/25 22:00 02/18/25 22:00 80 MG Ondansetron HCl 4 mg Q6HPRN PRN IV 02/18/25 20:15 02/18/25 20:20 4 MG Lisinopril 10 mg DAILY PO 02/20/25 10:00 Empaglifozin 10 mg DAILY PO 02/20/25 10:00 Examination General Appearance: Cooperative. Well developed. Well nourished. NAD Head Exam: Normal inspection Neck Exam: Normal inspection. Non-tender. Normal alignment Pulmonary/Respiratory: Crackles. Chest non-tender. Clear bilateral breath sounds, no wheezing. Cardiovascular/Chest: Regular rate and rhythm. No murmurs. No JVD. Peripheral Pulses: 2+ Radial (R). 2+ Radial (L). 2+ Pedal (R). 2+ Pedal (L) Abdominal Exam: Normal bowel sounds. Soft. normal abdomen, no visible veins, Nontender. No hepatospenomegaly. No masses Ankle Exam: Negative ankle edema Lower extremities: Negative lower extremity edema Neuro/Mental Status: A&O x4. Coherent. Thoughts/Psych: Normal thought pattern. Appropriate mood and affect. Good judgement and insight Skin Exam: Normal inspection. Normal color. Warm. Dry laboratory and microbiology Laboratory Tests 02/19/25 05:13 Test 02/19/25 05:13 Range/Units Serum Glucose 101 74-106 mg/dL Microbiology Date/Time Source Procedure Growth Status 02/18/25 22:10 Nose MRSA Screen - Final Complete Labs and/or images reviewed: Labs reviewed by me, Image(s) reviewed by me Problem List/Assessment/Plan Problem List/Assessment/Plan # NSTEMI, type 1 # CAD s/p PCI with 2 stents # h/o Status post TAVR (on ASA) # hypertensive heart disease # rule out heart failure - EKG showed ST depression in inferolateral leads, with first-degree heart block - elevated troponins - cardiology consulted and the patient was taken to biology laboratory assistant where he underwent percutaneous coronary intervention - aspirin and Plavix - high-dose statin - metoprolol succinate - echocardiogram pending # pneumonia likely d/t gram +/- bacteria - CT chest showed bilateral lower lobe consolidation and small pleural effusions -O2 supplement -IV antibiotic ceftriaxone and doxycycline -DuoNebs q.6 hours # Ruled out DVT - Bilateral lower extremity venous duplex: No right or left femoropopliteal venous thrombosis. DVT prophylaxis: Lovenox 40mg Goals of care discussed with the patient: Full code, discussed for >41 minutes on 02/19/[address] Hendricks Plan discussed with: Patient My Orders My Orders Orders - PEDRO SALAS Procedure Category Date Status Time Urinalysis LAB 02/18/25 Logged 20:36 Drug Screen LAB 02/18/25 Logged 20:36 Pt Request For Service PT 02/19/25 Logged 11:57 Complete Blood Count LAB 02/20/25 Verified 04:00 Basic Metabolic Panel LAB 02/20/25 Verified 04:00 Date of Service: Feb 19, 2025 Billing Provider: CARMELITA HENDRICKS MD Common Visit Codes: [id number] INP/OBS CARE(HIGH) PEDRO SALAS Feb 19, 2025 17:25 CARMELITA HENDRICKS MD Feb 24, 2025 20:45
[2025-02-20] VITALS (13 sets, daily range): BP systolic 112–133; BP diastolic 56–75; PULSE 80–100; RESP 16–20; TEMP 97.7–98.3; O2SAT 92–99
--- NOTE | 2025-02-20 06:11 | DVH ---
CHEST RADIOGRAPH Indication: sob Technique: Single frontal view of the chest was obtained Comparison: CT CT ANGIO CHEST CONTRAST on DOS: 02/18/25 FINDINGS: Lines and Tubes: None Lungs: Increased bilateral interstitial prominence. Pleura: Trace bilateral pleural effusions. No pneumothorax. Cardiomediastinal contours: There is cardiomegaly. Bones: No acute osseous abnormality. IMPRESSION: 1. Cardiomegaly with increased bilateral interstitial prominence and trace bilateral pleural effusion s.
[2025-02-20 06:54] LABS: Chloride 106 mmol/L (98-107); Potassium 3.8 mmol/L (3.5-5.1); Sodium 137 mmol/L (136-145)
[2025-02-20 06:55] LABS: Anion Gap 11 (5-15); Calcium 8.4 mg/dL (8.7-10.4); Carbon Dioxide 20 mmol/L (20-31); Hematocrit 37.6 % (41.0-53.0); Hemoglobin 12.9 g/dL (13.5-17.5); Mean Corpuscular Hemoglobin 31.6 pg (28.0-32.0); Mean Corpuscular Volume 92.3 fL (80.0-100.0); Nucleated Red Blood Cells % 0.0 %
[2025-02-20 07:01] LABS: BUN/Creatinine Ratio 16.5 (10.0-20.0); Blood Urea Nitrogen 22 mg/dL (9-23); Glucose 95 mg/dL (74-106)
[2025-02-20] MEDS: EMPAGLIFLOZIN 10 MG TAB PO SCH (09:01)
[2025-02-20] MEDS: LISINOPRIL 5 MG TAB PO SCH (09:03)
[2025-02-20 09:20] LABS: Amphetamine Screen, Urine Neg (NEGATIVE); Barbiturate Scree,Urine Neg (NEGATIVE); Benzodiazephine Screen, Urine Neg (NEGATIVE); Cannabinoid Screen, Urine Neg (NEGATIVE); Cocaine Screen, Urine Neg (NEGATIVE); Opiate Scree,Urine Neg (NEGATIVE); Phencyclidine Screen, Urine Neg (NEGATIVE); Urine Protein, UAD Negative (Negative)
[2025-02-20] MEDS: FUROSEMIDE 40 MG/4 ML VIAL IV ONE (09:58)
[2025-02-20] MEDS ORDERED: VANCOMYCIN PER PHARMACY 0 MG IV SCH (11:15)
[2025-02-20] MEDS: LEVALBUTEROL HCL 1.25 MG/3 ML NEB NEB SCH (11:34)
[2025-02-20] MEDS: CEFEPIME 1GM/50ML 50 ML IV ONE (11:40)
[2025-02-20] MEDS: VANCOMYCIN 1.5GM/250ML 250 ML IV ONE (12:34)
--- NOTE | 2025-02-20 14:57 | DVHPNRES ---
Progress Note Date Seen: Feb 20, 2025 Resident Creating Document: PEDRO SALAS Medical Necessity Reason Pt with a Central, PICC or Fol: No Subjective Review of Systems Patient is a 79-year-old male with past medical history of hypertension, hyperlipidemia and prior aortic valve replacement , presented to [facility] ED with complaint of shortness of breath. Patient reports that he had shortness of breath that began 2 days ago after prolonged driving with significant altitude change. He described the shortness breath as requiring deeper breaths and states that it worsened when lying flat but improve when sitting up. He denies experiencing typical chest pain but reports mild chest pressure in sensation of discomfort. He also complained with mild dizziness, light coughing without phlegm. Blood work from [facility] revealed an unremarkable CXR, BNP 634 pg/mL, Troponin levels at 1.93/2.38/2.50 ng/mL, and 12 lead electrocardiogram revealing a sinus rhythm with a associated first-degree atrioventricular block and inferolateral ST-depression. He was loaded on ASA 324 mg at aforementioned facility. Patient denies sweating, nausea and vomiting. 02/20- Patient was seen and examined at bedside. Overnight events were reviewed. Patient began complaining of cough productive of white-colored phlegm and shortness of breath. Patient on 3L oxygen via nasal cannula, with stable vital signs. Objective vital signs Vital Sign Date Time Temp Pulse Resp B/P (MAP) Pulse Ox O2 Delivery O2 Flow Rate FiO2 02/20/25 13:00 98.2 87 16 119/56 (77) 98 98.2 02/20/25 11:34 Nasal Cannula 1.0 02/20/25 11:34 24 Total Intake and Output 02/19/25 02/19/25 02/20/25 15:00 23:00 07:00 Intake Total 1200 ml 200 ml Balance 1200 ml 200 ml medications Current Medications Medications Dose Ordered Sig/Viktoria Route Start Time Stop Time Status Last Admin Dose Admin Nitroglycerin 0.4 mg Q5MINP PRN SL 02/18/25 14:00 Morphine Sulfate 2 mg Q30M PRN IV 02/18/25 14:30 Nitroglycerin 0.4 mg Q5MINP PRN SL 02/18/25 19:30 UNV Morphine Sulfate 2 mg Q30M PRN IV 02/18/25 19:30 UNV Aspirin 81 mg DAILY PO 02/19/25 10:00 02/20/25 09:01 81 MG Clopidogrel Bisulfate 75 mg DAILY PO 02/19/25 10:00 02/20/25 09:01 75 MG Ipratropium [place] 0.5 mg Q6HWA [facility] 02/19/25 06:00 02/20/25 11:34 0.5 MG Enoxaparin Sodium 40 mg DAILY SC 02/19/25 10:00 02/20/25 09:04 40 MG Metoprolol Succinate 25 mg DAILY PO 02/19/25 10:00 02/20/25 09:02 25 MG Atorvastatin Calcium 80 mg HS PO 02/18/25 22:00 02/19/25 22:22 80 MG Ondansetron HCl 4 mg Q6HPRN PRN IV 02/18/25 20:15 02/18/25 20:20 4 MG Lisinopril 10 mg DAILY PO 02/20/25 10:00 02/20/25 09:03 10 MG Empaglifozin 10 mg DAILY PO 02/20/25 10:00 02/20/25 09:01 10 MG Levalbuterol HCl 1.25 mg Q6HWA [facility] 02/20/25 12:00 02/20/25 11:34 1.25 MG Cefepime HCl 50 ml @ 12.5 mls/hr Q12HR IV 02/20/25 22:00 Vancomycin HCl 0 ml @ 0 mls/hr UD IV 02/20/25 11:15 Examination General Appearance: Cooperative. Well developed. Well nourished. NAD Head Exam: Normal inspection Neck Exam: Normal inspection. Non-tender. Normal alignment Pulmonary/Respiratory: Crackles. Chest non-tender. Clear bilateral breath sounds, no wheezing. Cardiovascular/Chest: Regular rate and rhythm. No murmurs. No JVD. Peripheral Pulses: 2+ Radial (R). 2+ Radial (L). 2+ Pedal (R). 2+ Pedal (L) Abdominal Exam: Normal bowel sounds. Soft. normal abdomen, no visible veins, Nontender. No hepatospenomegaly. No masses Ankle Exam: Negative ankle edema Lower extremities: Negative lower extremity edema Neuro/Mental Status: A&O x4. Coherent. Thoughts/Psych: Normal thought pattern. Appropriate mood and affect. Good judgement and insight Skin Exam: Normal inspection. Normal color. Warm. 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) # hypertensive heart disease # rule out heart failure - EKG showed ST depression in inferolateral leads, with first-degree heart block - elevated troponins - cardiology consulted and the [facility] where he underwent percutaneous coronary intervention - aspirin and Plavix - high-dose statin - metoprolol succinate - echocardiogram pending - Angiography # pneumonia likely d/t gram +/- bacteria - CT chest showed bilateral lower lobe consolidation and small pleural effusions - Chest X-ray shows Cardiomegaly with increased bilateral interstitial prominence and trace bilateral pleural effusions. - O2 supplement - IV antibiotic Cefepime and Vancomycin - Levalbuterol 1.25 MG NEB Q6H - DuoNebs q.6 hours - MRSA screen: negative # Ruled out DVT - Bilateral lower extremity venous duplex: No right or left femoropopliteal venous thrombosis. DVT prophylaxis: Lovenox 40mg Goals of care discussed with the patient: Full code, discussed for >41 minutes on 02/20/[address] Hendricks Plan discussed with: Patient My Orders My Orders Orders - PEDRO SALAS Procedure Category Date Status Time Cefepime 1gm/50ml PHA 02/20/25 In Process (Maxipime 1gm/50ml) 22:00 Vancomycin Per PHA 02/20/25 In Process Pharmacy 11:15 Basic Metabolic Panel LAB 02/21/25 Verified 04:00 Date of Service: Feb 20, 2025 Billing Provider: CARMELITA HENDRICKS MD Common Visit Codes: [id number] INP/OBS CARE(HIGH) PEDRO SALAS Feb 20, 2025 14:57 CARMELITA HENDRICKS MD Feb 24, 2025 20:45
[2025-02-20 19:33] LABS: Chloride 102 mmol/L (98-107); Sodium 137 mmol/L (136-145)
[2025-02-20 19:34] LABS: Anion Gap 13 (5-15); Carbon Dioxide 22 mmol/L (20-31)
[2025-02-20 19:35] LABS: Calcium 8.7 mg/dL (8.7-10.4)
[2025-02-20 19:39] LABS: BUN/Creatinine Ratio 15.0 (10.0-20.0); Blood Urea Nitrogen 21 mg/dL (9-23)
[2025-02-20 19:41] LABS: Glucose 116 mg/dL (74-106); Potassium 3.4 mmol/L (3.5-5.1)
[2025-02-20] MEDS: CEFEPIME 1GM/50ML 50 ML IV SCH (23:18)
[2025-02-21] VITALS (14 sets, daily range): BP systolic 116–163; BP diastolic 58–73; PULSE 75–101; RESP 16–20; TEMP 96.9–98.2; O2SAT 93–99
[2025-02-21 06:30] LABS: Hematocrit 36.6 % (41.0-53.0); Hemoglobin 12.7 g/dL (13.5-17.5); Mean Corpuscular Hemoglobin 31.8 pg (28.0-32.0); Mean Corpuscular Volume 91.6 fL (80.0-100.0); Nucleated Red Blood Cells % 0.0 %
[2025-02-21 06:42] LABS: Anion Gap 12 (5-15); Carbon Dioxide 21 mmol/L (20-31); Chloride 105 mmol/L (98-107); Potassium 4.0 mmol/L (3.5-5.1); Sodium 138 mmol/L (136-145)
[2025-02-21 06:48] LABS: Calcium 8.5 mg/dL (8.7-10.4); Glucose 97 mg/dL (74-106)
[2025-02-21 06:49] LABS: BUN/Creatinine Ratio 21.6 (10.0-20.0)
[2025-02-21 06:51] LABS: Blood Urea Nitrogen 29 mg/dL (9-23)
--- NOTE | 2025-02-21 11:50 | DVHPNRES ---
Progress Note Date Seen: Feb 21, 2025 Resident Creating Document: PEDRO SALAS Medical Necessity Reason Pt with a Central, PICC or Fol: No Subjective Review of Systems Patient is a 79-year-old male with past medical history of hypertension, hyperlipidemia and prior aortic valve replacement , presented to [facility] ED with complaint of shortness of breath. Patient reports that he had shortness of breath that began 2 days ago after prolonged driving with significant altitude change. He described the shortness breath as requiring deeper breaths and states that it worsened when lying flat but improve when sitting up. He denies experiencing typical chest pain but reports mild chest pressure in sensation of discomfort. He also complained with mild dizziness, light coughing without phlegm. Blood work from [facility] revealed an unremarkable CXR, BNP 634 pg/mL, Troponin levels at 1.93/2.38/2.50 ng/mL, and 12 lead electrocardiogram revealing a sinus rhythm with a associated first-degree atrioventricular block and inferolateral ST-depression. He was loaded on ASA 324 mg at aforementioned facility. Patient denies sweating, nausea and vomiting. 02/20- Patient was seen and examined at bedside. Overnight events were reviewed. Patient began complaining of cough productive of white-colored phlegm and shortness of breath. Patient on 3L oxygen via nasal cannula, with stable vital signs. 02/21- Patient was seen and examined at bedside. Overnight events were reviewed. The patient reports improvement in his symptoms. Patient is currently receiving oxygen via 2L nasal cannula with stable vital signs. Incentive spirometry education provided. Objective vital signs Vital Sign Date Time Temp Pulse Resp B/P (MAP) Pulse Ox O2 Delivery O2 Flow Rate FiO2 02/21/25 09:00 97.8 84 18 128/58 (81) 94 97.8 02/21/25 08:00 Nasal Cannula* 2 28 Total Intake and Output 02/20/25 02/20/25 02/21/25 15:00 23:00 07:00 Intake Total 1320 ml 1320 ml Output Total 900 ml 900 ml Balance 420 ml 420 ml medications Current Medications Medications Dose Ordered Sig/Viktoria Route Start Time Stop Time Status Last Admin Dose Admin Nitroglycerin 0.4 mg Q5MINP PRN SL 02/18/25 14:00 Morphine Sulfate 2 mg Q30M PRN IV 02/18/25 14:30 Nitroglycerin 0.4 mg Q5MINP PRN SL 02/18/25 19:30 UNV Morphine Sulfate 2 mg Q30M PRN IV 02/18/25 19:30 UNV Aspirin 81 mg DAILY PO 02/19/25 10:00 02/21/25 08:49 81 MG Clopidogrel Bisulfate 75 mg DAILY PO 02/19/25 10:00 02/21/25 08:49 75 MG Ipratropium [place] 0.5 mg Q6HWA [facility] 02/19/25 06:00 02/21/25 06:18 0.5 MG Enoxaparin Sodium 40 mg DAILY SC 02/19/25 10:00 02/21/25 08:50 40 MG Metoprolol Succinate 25 mg DAILY PO 02/19/25 10:00 02/21/25 08:49 25 MG Atorvastatin Calcium 80 mg HS PO 02/18/25 22:00 02/20/25 22:00 80 MG Ondansetron HCl 4 mg Q6HPRN PRN IV 02/18/25 20:15 02/18/25 20:20 4 MG Lisinopril 10 mg DAILY PO 02/20/25 10:00 02/21/25 08:50 10 MG Empaglifozin 10 mg DAILY PO 02/20/25 10:00 02/21/25 08:47 10 MG Levalbuterol HCl 1.25 mg Q6HWA [facility] 02/20/25 12:00 02/21/25 06:18 1.25 MG Cefepime HCl 50 ml @ 12.5 mls/hr Q12HR IV 02/20/25 22:00 02/21/25 08:50 12.5 MLS/HR Vancomycin HCl 0 ml @ 0 mls/hr UD IV 02/20/25 11:15 Examination General Appearance: Cooperative. Well developed. Well nourished. NAD Head Exam: Normal inspection Neck Exam: Normal inspection. Non-tender. Normal alignment Pulmonary/Respiratory: Crackles. Chest non-tender. Clear bilateral breath sounds, no wheezing. Cardiovascular/Chest: Regular rate and rhythm. No murmurs. No JVD. Peripheral Pulses: 2+ Radial (R). 2+ Radial (L). 2+ Pedal (R). 2+ Pedal (L) Abdominal Exam: Normal bowel sounds. Soft. normal abdomen, no visible veins, Nontender. No hepatospenomegaly. No masses Ankle Exam: Negative ankle edema Lower extremities: Negative lower extremity edema Neuro/Mental Status: A&O x4. Coherent. Thoughts/Psych: Normal thought pattern. Appropriate mood and affect. Good judgement and insight Skin Exam: Normal inspection. Normal color. Warm. 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) # hypertensive heart disease # rule out heart failure - EKG showed ST depression in inferolateral leads, with first-degree heart block - elevated troponins - cardiology consulted and the patient was taken to [facility] where he underwent percutaneous coronary intervention - aspirin and Plavix - high-dose statin - metoprolol succinate - echocardiogram pending - Angiography # pneumonia likely d/t gram +/- bacteria - CT chest showed bilateral lower lobe consolidation and small pleural effusions - Chest X-ray shows Cardiomegaly with increased bilateral interstitial prominence and trace bilateral pleural effusions. - O2 supplement - IV antibiotic Cefepime and Vancomycin - Levalbuterol 1.25 MG NEB Q6H - DuoNebs q.6 hours - MRSA screen: negative # Ruled out DVT - Bilateral lower extremity venous duplex: No right or left femoropopliteal venous thrombosis. DVT prophylaxis: Lovenox 40mg Goals of care discussed with the patient: Full code, discussed for >41 minutes on 02/20/[address] Hendricks Plan discussed with: Patient My Orders My Orders Orders - PEDRO SALAS Procedure Category Date Status Time Complete Blood Count LAB 02/22/25 Verified 04:00 Basic Metabolic Panel LAB 02/22/25 Verified 04:00 Date of Service: Feb 21, 2025 Billing Provider: CARMELITA HENDRICKS MD Common Visit Codes: [id number] INP/OBS CARE(HIGH) PEDRO SALAS Feb 21, 2025 11:50 CARMELITA HENDRICKS MD Feb 24, 2025 20:46
[2025-02-21] MEDS: VANCOMYCIN 1GM/250ML KIT 250 ML IV ONE (12:33)
[2025-02-22] VITALS (15 sets, daily range): BP systolic 110–138; BP diastolic 49–66; PULSE 52–99; RESP 16–20; TEMP 97.6–98.6; O2SAT 94–98
[2025-02-22 06:00] LABS: Hematocrit 36.8 % (41.0-53.0); Hemoglobin 12.8 g/dL (13.5-17.5); Mean Corpuscular Hemoglobin 32.0 pg (28.0-32.0); Mean Corpuscular Volume 92.2 fL (80.0-100.0); Nucleated Red Blood Cells % 0.0 %
[2025-02-22 06:37] LABS: Chloride 106 mmol/L (98-107); Potassium 4.1 mmol/L (3.5-5.1); Sodium 138 mmol/L (136-145)
[2025-02-22 06:38] LABS: Anion Gap 12 (5-15); Carbon Dioxide 20 mmol/L (20-31)
[2025-02-22 06:39] LABS: Calcium 8.7 mg/dL (8.7-10.4)
[2025-02-22 06:43] LABS: BUN/Creatinine Ratio 18.0 (10.0-20.0); Blood Urea Nitrogen 23 mg/dL (9-23); Glucose 104 mg/dL (74-106)
--- NOTE | 2025-02-22 07:08 | DVH ---
CHEST RADIOGRAPH Indication: sob Technique: Single frontal view of the chest was obtained Comparison: XY CHEST PORTABLE on DOS: 02/20/25, CT CT ANGIO CHEST CONTRAST on DOS: 02/18/25, XR CHEST 1 VIEW on DOS: 02/18/25 IMPRESSION: Heart appears prominent size. Bilateral perihilar airspace opacities and interstitial prominence geoff ear similar to slightly worsened. No sizable effusion or pneumothorax.
[2025-02-22] MEDS: AZITHROMYCIN 250 MG TAB PO SCH (09:53)
[2025-02-22] MEDS: PIPERACILLIN-TAZOB 3.375GM 100 ML IV ONE (09:54)
[2025-02-22] MEDS: FUROSEMIDE 40 MG/4 ML VIAL IV ONE (09:54)
[2025-02-22] MEDS: ACETYLCYSTEINE 20%(200MG/ML) SOL 4ML NEB SCH (12:45)
--- NOTE | 2025-02-22 14:27 | DVHPNRES ---
Progress Note Date Seen: Feb 22, 2025 Resident Creating Document: STEFANIA PAEZ RESIDENT Medical Necessity Reason Pt with a Central, PICC or Fol: No Subjective Review of Systems Patient is a 79-year-old male with past medical history of hypertension, hyperlipidemia and prior aortic valve replacement , presented to [facility] ED with complaint of shortness of breath. Patient reports that he had shortness of breath that began 2 days ago after prolonged driving with significant altitude change. He described the shortness breath as requiring deeper breaths and states that it worsened when lying flat but improve when sitting up. He denies experiencing typical chest pain but reports mild chest pressure in sensation of discomfort. He also complained with mild dizziness, light coughing without phlegm. Blood work from [facility] revealed an unremarkable CXR, BNP 634 pg/mL, Troponin levels at 1.93/2.38/2.50 ng/mL, and 12 lead electrocardiogram revealing a sinus rhythm with a associated first-degree atrioventricular block and inferolateral ST-depression. He was loaded on ASA 324 mg at aforementioned facility. Patient denies sweating, nausea and vomiting. The patient was seen and examined at bedside. Overnight events were reviewed. The patient reports having exertional shortness of breaths and cough production with green phlegm. He denies any other complaints today. Objective vital signs Vital Sign Date Time Temp Pulse Resp B/P (MAP) Pulse Ox O2 Delivery O2 Flow Rate FiO2 02/22/25 09:54 116/54 02/22/25 09:52 94 02/22/25 08:30 97.7 16 95 97.7 02/22/25 08:00 Nasal Cannula* 2 28 Total Intake and Output 02/21/25 02/21/25 02/22/25 15:00 23:00 07:00 Intake Total 1870 ml 650 ml Balance 1870 ml 650 ml medications Current Medications Medications Dose Ordered Sig/Viktoria Route Start Time Stop Time Status Last Admin Dose Admin Nitroglycerin 0.4 mg Q5MINP PRN SL 02/18/25 14:00 Morphine Sulfate 2 mg Q30M PRN IV 02/18/25 14:30 Nitroglycerin 0.4 mg Q5MINP PRN SL 02/18/25 19:30 UNV Morphine Sulfate 2 mg Q30M PRN IV 02/18/25 19:30 UNV Aspirin 81 mg DAILY PO 02/19/25 10:00 02/22/25 09:53 81 MG Clopidogrel Bisulfate 75 mg DAILY PO 02/19/25 10:00 02/22/25 09:52 75 MG Ipratropium [place] 0.5 mg Q6HWA [facility] 02/19/25 06:00 02/22/25 12:45 0.5 MG Enoxaparin Sodium 40 mg DAILY SC 02/19/25 10:00 02/22/25 10:05 40 MG Metoprolol Succinate 25 mg DAILY PO 02/19/25 10:00 02/22/25 09:52 25 MG Atorvastatin Calcium 80 mg HS PO 02/18/25 22:00 02/21/25 21:24 80 MG Ondansetron HCl 4 mg Q6HPRN PRN IV 02/18/25 20:15 02/18/25 20:20 4 MG Lisinopril 10 mg DAILY PO 02/20/25 10:00 02/22/25 09:52 10 MG Empaglifozin 10 mg DAILY PO 02/20/25 10:00 02/22/25 09:53 10 MG Levalbuterol HCl 1.25 mg Q6HWA [facility] 02/20/25 12:00 02/22/25 12:45 1.25 MG Vancomycin HCl 0 ml @ 0 mls/hr UD IV 02/20/25 11:15 Acetylcysteine 200 mg Q6HR [facility] 02/22/25 12:00 02/22/25 12:45 200 MG Piperacillin Sod/ Tazobactam Sod 100 ml @ 25 mls/hr Q8HR IV 02/22/25 14:00 Azithromycin 500 mg DAILY PO 02/22/25 10:00 02/22/25 09:53 500 MG Examination Pt is lying on bed General Appearance: Alert, Oriented X3, Cooperative, Mild distress HEENT: Atraumatic, Mucous membranes moist/pink Respiratory: Bilateral mild basal crackles, Normal air movement, No added sounds Cardiovascular: Regular rate, Normal S1, Normal S2, No murmurs Abdominal/ : Active bowel sounds, Soft, no distention, no tenderness Extremities: No edema, Normal pulses, No tenderness/swelling Skin: No Significant rash, except past surgical scars Neuro: Normal speech, sensorimotor deficits none Psych/Mental Status: Mental status NL, Mood NL Nurse was there as medical records supervisor during examination laboratory and microbiology Laboratory Tests 02/22/25 04:25 Test 02/22/25 04:25 Range/Units Serum Glucose 104 74-106 mg/dL Microbiology Date/Time Source Procedure Growth Status 02/20/25 07:32 Sputum Gram Stain - Final Complete 02/20/25 07:32 Sputum Respiratory Culture - Final Complete 02/18/25 22:10 Nose MRSA Screen - Final Complete Labs and/or images reviewed: Labs reviewed by me, Image(s) reviewed by me Problem List/Assessment/Plan Problem List/Assessment/Plan # NSTEMI, type 1 # CAD s/p PCI with 2 stents # h/o Status post TAVR (on ASA) # hypertensive heart disease # rule out heart failure - EKG showed ST depression in inferolateral leads, with first-degree heart block - elevated troponins - cardiology consulted and the patient was taken to [facility] where he underwent percutaneous coronary intervention - aspirin and Plavix - high-dose statin - metoprolol succinate - echocardiogram pending - Angiography # pneumonia likely d/t gram +/- bacteria - CT chest showed bilateral lower lobe consolidation and small pleural effusions - Chest X-ray shows Cardiomegaly with increased bilateral interstitial prominence and trace bilateral pleural effusions. - O2 supplement - IV antibiotic Cefepime and Vancomycin - Levalbuterol 1.25 MG NEB Q6H - DuoNebs q.6 hours - MRSA screen: negative -CXR on 02/22/2025 revealed worsening congestion, IV Lasix was given. # Ruled out DVT - Bilateral lower extremity venous duplex: No right or left femoropopliteal venous thrombosis. DVT prophylaxis: Lovenox 40mg Goals of care discussed with the patient: Full code, discussed for >41 minutes on 02/20/[address] Stewart Plan discussed with: Patient Plan discussed with: Patient, Spouse (RN), Other Dietary Evaluation Review Recommendations by RD: Dietary education by RD Comments: 1) Continue cardiac diet 2) Refer to outpatient RD for weight management 3) Follow-up with cardiology 4) Continue to monitor I&O, labs, and skin integrity Expected Outcomes/Goals: 1) appetite and labs to improve 2) gradual wt loss 3) f/u in 3-5 days Date of Service: Feb 22, 2025 Billing Provider: CARMELITA STEWART MD Common Visit Codes: [id number] INP/OBS CARE(MOD) STEFANIA PAEZ Feb 22, 2025 14:27 CARMELITA STEWART MD Feb 24, 2025 20:46
[2025-02-22] MEDS: PIPERACILLIN-TAZOB 3.375GM 100 ML IV SCH (15:00)
[2025-02-22] MEDS: VANCOMYCIN 1.25GM/250ML 250 ML IV ONE (15:10)
[2025-02-22] MEDS: ACETYLCYSTEINE 20%(200MG/ML) SOL 4ML ONE (17:44)
[2025-02-22] MEDS: LEVALBUTEROL HCL 1.25 MG/3 ML NEB NEB SCH (18:47)
[2025-02-22] MEDS: IPRATROPIUM BROM 0.5 MG/2.5ML INH SOL NEB SCH (18:47)
[2025-02-23] VITALS (9 sets, daily range): BP systolic 119–135; BP diastolic 56–63; PULSE 77–98; RESP 16–20; TEMP 97.6–98.2; O2SAT 92–100
[2025-02-23 07:03] LABS: Hematocrit 34.6 % (41.0-53.0); Hemoglobin 12.0 g/dL (13.5-17.5); Mean Corpuscular Hemoglobin 31.9 pg (28.0-32.0); Mean Corpuscular Volume 92.4 fL (80.0-100.0); Nucleated Red Blood Cells % 0.0 %
[2025-02-23 07:28] LABS: Chloride 103 mmol/L (98-107); Potassium 4.0 mmol/L (3.5-5.1); Sodium 138 mmol/L (136-145)
[2025-02-23 07:29] LABS: Anion Gap 12 (5-15); Carbon Dioxide 23 mmol/L (20-31)
[2025-02-23 07:30] LABS: Calcium 8.4 mg/dL (8.7-10.4)
[2025-02-23 07:34] LABS: BUN/Creatinine Ratio 15.5 (10.0-20.0); Blood Urea Nitrogen 22 mg/dL (9-23); Glucose 83 mg/dL (74-106)
[2025-02-23] MEDS: VANCOMYCIN 750MG KIT 100 ML IV SCH (10:51)
[2025-02-23] MEDS ORDERED: EMPA1TAB PO (13:30)
[2025-02-23] MEDS ORDERED: ASPI-325 PO (13:30)
[2025-02-23] MEDS ORDERED: CLOP75TA70 PO (13:30)
[2025-02-23] MEDS ORDERED: AZIT-43 PO (13:30)
[2025-02-23] MEDS ORDERED: AUG875T PO (13:35)
[2025-02-23] MEDS ORDERED: LISI-275 PO (13:35)
[2025-02-23] MEDS ORDERED: METO-289 PO (13:35)
[2025-02-23] MEDS ORDERED: FURO1TAB33 PO (13:35)
[2025-02-23] MEDS ORDERED: ATOR40TA52 PO (13:36)
--- NOTE | 2025-02-23 13:58 | DVHDSRES ---
Discharge Summary Date of Admission Resident Creating Document: STEFANIA PAEZ Feb 18, 2025 at 19:27 Date of Discharge: Feb 23, 2025 Admitting Diagnosis Shortness of breath Labs/Diagnostic Data: Laboratory Results Test 02/23/25 04:44 02/22/25 04:25 02/20/25 08:45 02/19/25 04:30 White Blood Count 11.1 10^3/uL (4.4-10.8) Red Blood Count 3.75 10^6/uL (4.5-5.90) Hemoglobin 12.0 g/dL (13.5-17.5) Hematocrit 34.6 % (41.0-53.0) Mean Corpuscular Volume 92.4 fL (80.0-100.0) Mean Corpuscular Hemoglobin 31.9 pg (28.0-32.0) Mean Corpuscular Hemoglobin Concent 34.5 g/dL (32.0-36.0) Red Cell Distribution Width 12.8 % (11.8-14.3) Platelet Count 222 10^3/uL (140-450) Mean Platelet Volume 9.4 fL (6.9-10.8) Neutrophils (%) (Auto) 73.4 % (37.0-80.0) Lymphocytes (%) (Auto) 14.2 % (10.0-50.0) Monocytes (%) (Auto) 8.7 % (0.0-12.0) Eosinophils (%) (Auto) 3.3 % (0.0-7.0) Basophils (%) (Auto) 0.4 % (0.0-2.0) Neutrophils # (Auto) 8.2 10 ^3/uL (1.6-8.6) Lymphocytes # (Auto) 1.6 10 ^3/uL (0.4-5.4) Monocytes # (Auto) 1.0 10 ^3/uL (0-1.3) Eosinophils # (Auto) 0.4 10 ^3/uL (0-0.8) Basophils # (Auto) 0 10 ^3/uL (0-0.2) Nucleated Red Blood Cells 0.0 % Sodium Level 138 mmol/L (136-145) Potassium Level 4.0 mmol/L (3.5-5.1) Chloride Level 103 mmol/L (98-107) Carbon Dioxide Level 23 mmol/L (20-31) Anion Gap 12 (5-15) Blood Urea Nitrogen 22 mg/dL (9-23) Creatinine 1.42 mg/dL (0.700-1.30) Glomerular Filtration Rate Calc 50 mL/min (>90) BUN/Creatinine Ratio 15.5 (10.0-20.0) Serum Glucose 83 mg/dL (74-106) Calcium Level 8.4 mg/dL (8.7-10.4) Random Vancomycin Level 9.5 ug/mL (5-10) B-Type Natriuretic Peptide 1399.10 pg/mL (0-100) Urine Color Light-yellow (Yellow) Urine Clarity Clear (Clear) Urine pH 5.5 (5.0-9.0) Urine Specific [place] 1.017 (1.001-1.035) Urine Protein Negative (Negative) Urine Ketones Negative (Negative) Urine Blood 1+ /uL (Negative) Urine Nitrite Negative (Negative) Urine Bilirubin Negative (Negative) Urine Urobilinogen Normal mg/dL (Negative) Urine Leukocyte Esterase Negative /uL (Negative) Urine RBC 3 /hpf (0 - 3) Urine Microscopic WBC 1 /HPF (0-3) Urine Squamous Epithelial Cells None seen /hpf (<5) Urine Bacteria None seen /hpf (None Seen) Urine Glucose Normal mg/dL (Normal) Urine Opiates Screen Neg (NEGATIVE) Urine Fentanyl Screen Neg (NEGATIVE) Urine Barbiturates Screen Neg (NEGATIVE) Urine Phencyclidine Screen Neg (NEGATIVE) Urine Amphetamines Screen Neg (NEGATIVE) Urine Benzodiazepines Screen Neg (NEGATIVE) Urine Cocaine Screen Neg (NEGATIVE) Urine Cannabinoids Screen Neg (NEGATIVE) Influenza Type A Antigen Negative (Negative) Influenza Type B Antigen Negative (Negative) SARS-CoV-2 Antigen (Rapid) Negative (NEGATIVE) Test 02/18/25 23:17 02/18/25 13:14 02/18/25 10:20 Lactic Acid Level 1.2 mmol/L (0.4-2.0) Prothrombin Time 10.6 sec (9.3-11.8) Prothrombin Time INR 1.0 (0.9-1.15) Activated Partial Thromboplast Time 28.1 SEC (24.5-34.5) Magnesium Level 2.0 mg/dL (1.6-2.6) Triglycerides Level 93 mg/dL (< 150) Cholesterol Level 157 mg/dL (< 200) LDL Cholesterol 94 mg/dL (< 100) HDL Cholesterol 54 mg/dL (40-59) Thyroid Stimulating Hormone (TSH) 2.95 uIU/mL (0.55-4.78) Troponin I High Sensitivity 2734 ng/L (</=54) Other Laboratory Tests 02/23/25 04:44 Brief Hx & Hospital Course: The patient is a 79-year-old male with a history of hypertension, hyperlipidemia, coronary artery disease status post PCI with two stents, and prior transcatheter aortic valve replacement (TAVR). He presented to the Emergency Department with shortness of breath that began two days prior following prolonged driving with significant altitude change. Symptoms included orthopnea, mild chest pressure, lightheadedness, and a dry cough. He denied nausea, vomiting, diaphoresis, or typical chest pain. Initial evaluation at [facility] revealed elevated troponins (1.93 ? 2.50 ng/mL), BNP of 634 pg/mL, and EKG showing sinus rhythm with first-degree AV block and inferolateral ST-depression. He was loaded with aspirin and transferred for further management. On arrival, the patient remained alert and oriented, in mild distress. Cardiopulmonary exam revealed mild basal crackles and cardiomegaly on imaging. CT chest showed bilateral lower lobe consolidation and small pleural effusions, consistent with pneumonia. He was started on IV Cefepime and Vancomycin, along with nebulized bronchodilators. MRSA screen was negative. Given elevated troponins and EKG changes, cardiology was consulted. The patient underwent cardiac catheterization and percutaneous coronary intervention (PCI). He was started on dual antiplatelet therapy (aspirin and Plavix), high-dose statin, and metoprolol succinate. Echocardiogram was pending at the time of documentation. DVT was ruled out via bilateral lower extremity venous duplex. DVT prophylaxis with Lovenox was initiated. The patient remained stable on room air with oxygen saturation around 95%. He was educated on signs of respiratory distress and verbalized understanding. Discharge planning was initiated, with the patient and his planning to return to their hotel and fly back to [place], [place] later in the week. Follow-up with his PCP, Dr. Dom Sylvester, is scheduled for March 20, 2025. Examination General Appearance: Alert, Oriented X3, Cooperative, Mild distress HEENT: Atraumatic, Mucous membranes moist/pink Respiratory: Bilateral mild basal crackles, Normal air movement, No added sounds Cardiovascular: Regular rate, Normal S1, Normal S2, No murmurs Abdominal/ : Active bowel sounds, Soft, no distention, no tenderness Extremities: No edema, Normal pulses, No tenderness/swelling Skin: No Significant rash, except past surgical scars Neuro: Normal speech, sensorimotor deficits none Psych/Mental Status: Mental status NL, Mood NL Operations or Procedures PATIENT: KESHA RAYA ACCT: [id number] UNIT: [id number] : 1945 [facility] AGE / SEX: 79 / M ADM STATUS: ADM IN SERVICE 9 ORDERING PHYSICIAN: ROME MINA PROCEDURE(s): CXRP - CHEST PORTABLE REASON: sob ORDER NUMBER(s): [id number], ACCESSION NUMBER(s): [id number] CHEST RADIOGRAPH Indication: sob Technique: Single frontal view of the chest was obtained Comparison: XY CHEST PORTABLE on DOS: 02/20/25, CT CT ANGIO CHEST CONTRAST on DOS: 02/18/25, XR CHEST 1 VIEW on DOS: 02/18/25 IMPRESSION: Heart appears prominent size. Bilateral perihilar airspace opacities and interstitial prominence appear similar to slightly worsened. No sizable effusion or pneumothorax. ATED BY: TAYLOR FOSTER MD DICTATED DATE/TIME: 02/22/25706 SIGNED BY: TAYLOR FOSTER MD SIGNED DATE/TIME: 02/22/25706 PATIENT: QUIANA RAYAWIN ACCT: [id number] UNIT: [id number] : 1945 [facility] AGE / SEX: 79 / M ADM STATUS: ADM IN SERVICE 9 ORDERING PHYSICIAN: ROME MINA PROCEDURE(s): CXRP - CHEST PORTABLE REASON: sob ORDER NUMBER(s): [id number], ACCESSION NUMBER(s): [id number] CHEST RADIOGRAPH Indication: sob Technique: Single frontal view of the chest was obtained Comparison: CT CT ANGIO CHEST CONTRAST on DOS: 02/18/25 FINDINGS: Lines and Tubes: None Lungs: Increased bilateral interstitial prominence. Pleura: Trace bilateral pleural effusions. No pneumothorax. Cardiomediastinal contours: There is cardiomegaly. Bones: No acute osseous abnormality. IMPRESSION: 1. Cardiomegaly with increased bilateral interstitial prominence and trace bilateral pleural effusions. PATIENT: KESHA RAYA ACCT: [id number] UNIT: [id number] : 1945 LOC: ER ROOM / BED: / AGE / SEX: 79 / M ADM STATUS: REG ER SERVICE 1208 ORDERING PHYSICIAN: YEMI ABREU PROCEDURE(s): BLDVT - BiLat Lower DVT REASON: Edema ORDER NUMBER(s): [id number], ACCESSION NUMBER(s): [id number] Bilateral lower extremity venous duplex Clinical History: Edema Comparison: None Findings: Duplex Doppler evaluation of the deep venous systems of both lower extremities from the common femoral veins to the popliteal veins including color Doppler and spectral/pulsed waveform analysis was performed. RIGHT SIDE: The common femoral vein demonstrates appropriate compressibility and waveform variability. There is compressibility/patency of the great saphenous vein at the proximal thigh. The femoral vein demonstrates appropriate compressibility and waveform variability. The deep femoral vein demonstrates appropriate compressibility and waveform variability. The popliteal vein demonstrates appropriate compressibility and waveform variability. There is normal compressibility at the tibioperoneal trunk. LEFT SIDE: The common femoral vein demonstrates appropriate compressibility and waveform variability. There is compressibility/patency of the great saphenous vein at the proximal thigh. The femoral vein demonstrates appropriate compressibility and waveform variability. The deep femoral vein demonstrates appropriate compressibility and waveform variability. The popliteal vein demonstrates appropriate compressibility and waveform variability. There is normal compressibility at the tibioperoneal trunk. IMPRESSION: No right or left femoropopliteal venous thrombosis. If clinical concern/symptoms persist or worsen, short-interval follow-up study is suggested. END IMPRESSION: PATIENT: KESHA RAYA ACCT: [id number] UNIT: [id number] : 1945 LOC: ER ROOM / BED: / AGE / SEX: 79 / M ADM STATUS: REG ER SERVICE 1208 ORDERING PHYSICIAN: YEMI ABREU PROCEDURE(s): CTACH - CT ANGIO CHEST CONTRAST REASON: Chest pain/SOB rule out PE ORDER NUMBER(s): [id number], ACCESSION NUMBER(s): [id number] CTA Chest with intravenous contrast INDICATION: Chest pain/SOB rule out PE COMPARISON: None TECHNIQUE: Multidetector spiral CTA of the chest was performed of the chest with intravenous contrast. PULMONARY ANGIOGRAPHY PROTOCOL was utilized using a bolus- tracking technique centered on the main pulmonary artery. Axial, coronal and sagittal multiplanar and MIP reformats were performed. Radiation Dose : 1. Chest: Dose-length product is 99 mGy*cm The dose indicators for CT are the volume Computed Tomography (CT) Dose Index (CTDIvol) and the Dose Length Product (DLP), and are measured in units of mGy and mGy-cm, respectively. These indicators are not patient dose, but values generated from the CT scanner acquisition factors. The report includes radiation exposure data for exposures received during this examination. Findings: Pulmonary artery: No pulmonary embolism Lower neck: Normal thyroid. Lungs: Bibasilar consolidations may reflect pneumonia or aspiration. Heart/Vascular Structures: Normal heart size. No pericardial effusion. Lymph Nodes: No adenopathy Pleura: Small bilateral pleural effusions. Musculoskeletal: No acute osseous abnormality. Soft tissues: Normal. Upper abdomen: Limited portions of the upper abdomen are unremarkable. IMPRESSION: 1. No pulmonary embolism. 2. Bibasilar consolidations may reflect pneumonia or aspiration. 3. Small bilateral pleural effusions. Operative Report - 2 Report Details Date: 02/18/25 Preop Diagnosis: CAD Postop Diagnosis: CAD Surgeon: Surya Cohen MD Anesthesiologist: Conscious sedation Anesthesia: Mac, Local Consent: The patient was informed of the risks and benefits of the procedure. These include but are not limited to complications of anesthesia, postoperative infection, incomplete relief of symptoms, recurrence of symptoms, damage to blood vessels, nerves and tendons, deep venous thrombosis, pulmonary embolism and possible need for repeat surgery in the future. Complications: No complications Findings: Left main disease and LAD disease. Indications for Surgery: Shortness of breath and acute coronary syndrome. Name of Procedure Performed Left heart catheterization bilateral cine coronary angiography. Left ventriculography. PTCA and stenting of the left main. PTCA and stenting of the LAD and diagonal. Intravascular ultrasound of left main and LAD. Procedure Details Procedure Details: Prior local anesthesia with 2% lidocaine to the right wrist and full informed consent obtained the patient was prepped and draped in usual fashion followed by placement of a six [place] sheath into the radial artery. We then placed a multipurpose catheter into the RCA left main left ventricle. After evaluation proceeded to perform angioplasty and intravascular ultrasound of left main and LAD. Hemodynamics aortic blood pressure was 110/70 end-diastolic pressure was 12. There was no gradient across the aortic valve on pullback. Coronary anatomy. The RCA is a large vessel it is normal in its proximal mid and distal segments. The PDA and the posterolateral branches are normal. The left main has an ostial 80% stenosis on angiographic perspective. Intravascular ultrasound revealed less than a five mm squared area. The left anterior descending coronary artery has a hazy lesion at the level of the diagonal. There was WALTER two flow. The diagonal has mild plaquing. The circumflex has two obtuse marginals free of significant disease. Ventriculography in the CANNON projection shows an EF of about 45% with global hypokinesis. Angioplasty was performed for which a three five EBU guide was placed through was struck within the aortic valve into the left main. A Specter wire was then placed across the area of stenosis in an intravascular ultrasound device was used to evaluate the LAD and left main. We noticed a significant stenosis in the LAD. We proceeded to place a 4-0 18 rosalind [place] stent to the LAD. This was performed at a proximally 16 atmospheres. We verified with the Imagryo ultrasound device that there was excellent apposition of the stent with the LAD. We then performed stenting of the left main. We placed a 4-0 by 8 mm Medtronic stent and we post dilated with a noncompliant 5 mm Euphora stent. This was inflated to approximately 18 atmospheres. We noticed a residual lesion in the diagonal. We performed angioplasty of the diagonal through the struts. There was notable improvement in flow. Impression: Successful PTCA stenting of the left main and LAD post intravascular ultrasound evaluation. Mildly decreased left ventricular ejection fraction. Mildly elevated left ventricular end-diastolic pressure at rest. Recommendations: Dual antiplatelet therapy. Continue risk factor modification. Condition Good Disposition Still a Patient Date of Service: Feb 18, 2025 Billing Provider: SURYA COHEN Sr., MD Cardiology Common Codes: 19244-WPLFBRQ INP/OBS CARE (High) Cardiology Procedure Codes: 51078 -PTCA W/STENT PLACEMENT (Intravascular ultrasound of the left main and LAD.), 16039-CAJE HEART CATH W/INTRA INJ Peripheral Add ons: [id number] TIBIAL/PERON ARTERY SURYA COHEN Sr., MD Feb 18, 2025 19:57 DICTATED BY:SURYA COHEN Sr., MD DICTATED DATE/TIME:02/18/251956 ELECTRONICALLY SIGNED BY:SURYA COHEN Sr., MD 02/18/251956 PATIENT: KESHA RAYA ACCT: [id number] UNIT: [id number] : 1945 LOC: [facility] ROOM / BED: [address] [place] [address] AGE / SEX: 79 / M ADM STATUS: ADM IN SERVICE 1342 ORDERING PHYSICIAN: YEMI ABREU PROCEDURE(s): ECIDC - ECHO 2D MODE CARDIAC DOP REASON: PE vs CAD ORDER NUMBER(s): [id number], ACCESSION NUMBER(s): [id number] APPROVED REPORT EXAM: Two-dimensional and M-mode echocardiogram with Doppler and color Doppler. Blood Pressure: 155/56 mmHg INDICATION PE vs CAD Surgery/Intervention Valve Replacement: Bioprosthetic Type: TAVR RISK FACTORS Height: 5'8", Weight: 175 DIMENSIONS LVDd 5.1 (3.8-5.7cm) LA (2D) 3.8 (1.9-4.0cm) Aortic Root (2.0- 3.7cm) LVDs 3.4 (2.5-4.0cm) LA (MM) (1.9-4.0cm) Aortic Cusp Exc (1.5- 2.0cm) EF (%) 55.0 (55-70%) Rt. Atrium 3.7 (1.9-4.0cm) Asc. Aorta cm IVSd 1.3 (0.7-1.1cm) RV (D) 3.7 (1.8-2.4cm) PWd 1.1 (0.7-1.1cm) Mitral Valve Mitral Mitral Stenosis E/A ratio 0.0 2D MVA cm2 Aortic Valve Aortic Valve Aortic Stenosis V1 1.16m/s AO Mean GR. 11mmHg V2 2.50m/s AO Peak GR. 25mmHg LVOT Diameter 1.7 (1.8-2.4cm) Doppler MARIA DOLORES 1.05cm2 Pulmonic Valve V2 0.65m/s Other Information Technically limited study due to body habitus. Conclusion Technically good study. Sinus rhythm. LV enlargement. Mild RV enlargement. There is a TAVR valve present. There was no apparent dysfunction. The mitral tricuspid and pulmonic or structurally normal. Left ventricular function mildly diminished. There was a dilated left ventricle. EF is about 45% with mild global hypokinesis. Normal RV function. A peak gradient of 25 mmHg across the aortic valve is noted consistent with the prosthetic valve. Mean gradient is 11 mmHg. No apparent dysfunction noted. Mild tricuspid regurgitation. No pericardial effusion masses or vegetations discernible. SIGNED BY: SURYA COHEN Sr., MD SIGNED DATE/TIME: 02/18/251949 PATIENT: KESHA RAYA ACCT: [id number] : 1945 LOC: [facility] ROOM / BED: [address] [place] [address] AGE / SEX: 79 / M ADM STATUS: ADM IN SERVICE UNIT: [id number] ORDERING PHYSICIAN: URI RIDDLE MD PROCEDURE(s): EKG - ELECTROCARDIGRAM ORDER NUMBER(s): [id number], ACCESSION NUMBER(s): [id number] [facility] Test Date: 2025-02-18 Test Time: 11:22:35 Pat Name: KESHA RAYA Department: ER Room: [facility] Gender: M Case Sealer: GP : 1945 Requested By: URI RIDDLE Order Number: [id number] Reading MD: Surya Cohen Measurements Intervals [place] Rate: 96 P: 80 VA: 266 QRS: 58 QRSD: 91 T: -90 QT: 284 QTc: 359 Interpretive Statements Sinus rhythm Prolonged VA interval Probable LVH with secondary repol abnrm Electronically Signed On 02-19-2025 22:17:21 PDT by Surya Cohen Please click the below link to view image of tracing. DICTATED BY:SURYA COHEN Sr., MD DICTATED DATE/TIME:02/18/25 1122 ELECTRONICALLY SIGNED BY:SURYA COHEN Sr., MD 02/19/257 Condition at Discharge: Stable Final Diagnosis/Problems List # NSTEMI, type 1 # CAD s/p PCI with 2 stents # h/o Status post TAVR (on ASA) # hypertensive heart disease # Rule out heart failure # pneumonia likely d/t gram +/- bacteria # Ruled out DVT Discharge Disposition: Home Discharge Instruct/Medications Diet: Cardiac 2g Na,low cholest Activity: Light activity Follow Up/Referral: Follow up with PCP (Dr. Dom Sylvester) as scheduled (March 20, 2025) Medications: New Prescriptions: Amoxicillin & Pot Clavulanate (Augmentin Tablet) 875 Mg PO BID 5 Days # 10 TAB Ref 0 Aspirin (Aspirin Low Dose) 81 Mg PO daily 30 DAys #30 TAB Atorvastatin Calcium 40 Mg PO HS 30 Days #30 TAB Ref 0 Azithromycin 500 Mg PO Daily 3 Days # 6 TAB Clopidogrel Bisulfate (Clopidogrel) 75 Mg TAB Empagliflozin (Jardiance) 10 Mg PO Daily 30 Days # 30 TAB Furosemide (Lasix) 20 Mg PO Daily #30 TAB Ref 0 Lisinopril 10 Mg PO DAily 30 Days #60 TAB Ref 0 Metoprolol Succinate 50 Mg PO Daily 30 Days #30 TAB Ref 0 Stopped Medications: Aspirin 81 Mg PO Daily 30 Days MG Biotin (Vitamin H) 1,000Mcg PO Cholecalciferol 2,000 Unit Tab 1 Tab PO daily #30 TAB Ref 5 Lisinoril 20 Mg PO daily 30 days MG Lovastatin 40 Mg 1 Tab PO Daily #30 TAB Ref 5 continue home medications Scheduled Amoxicillin & Pot Clavulanate (Augmentin Tablet), 875 MG PO BID Aspirin (Aspirin Low Dose), 81 MG PO DAILY Atorvastatin Calcium (Atorvastatin Calcium), 40 MG PO HS Azithromycin (Azithromycin), 500 MG PO DAILY Clopidogrel Bisulfate (Clopidogrel), 75 MG PO DAILY Empagliflozin (Jardiance), 10 MG PO DAILY Furosemide (Lasix), 20 MG PO DAILY Lisinopril (Lisinopril), 10 MG PO DAILY Metoprolol Succinate (Metoprolol Succinate Er), 50 MG PO DAILY Discontinued Medications Aspirin (Aspir-Low), 81 MG PO DAILY, (Reported) Biotin (Vitamin H) (Biotin), 1,000 MCG PO, (Reported) Cholecalciferol (Vitamin D3), 1 TAB PO DAILY, (Reported) Lisinopril (Lisinopril), 20 MG PO DAILY, (Reported) Lovastatin (Lovastatin), 1 TAB PO DAILY, (Reported) Discharge Statement: "Patient was advised to return to the ER or call 911 if any headaches, dizziness, shortness of breath, chest pain, abdominal pain, bleeding, fevers, or worsening of medical condition. Patient was counseled about treatment plan, medications, possible side effects, patientverbalized understanding. All questions were answered to the best of my ability. This discharge took greater then 30 minutes in planning, reviewing documentation, counseling the patient, and discussing with other team members." ASSESSMENT ASSESSMENT Assessment # NSTEMI, type 1 # CAD s/p PCI with 2 stents # h/o Status post TAVR (on ASA) # hypertensive heart disease # Rule out heart failure # pneumonia likely d/t gram +/- bacteria # Ruled out DVT Date of Service: Feb 23, 2025 Billing Provider: CARMELITA STEWART MD Common Visit Codes: 67630-ATW/OBS DISCH DAY >30min PEDRO SALAS RESIDENT Feb 23, 2025 13:58 CARMELITA STEWART MD Feb 24, 2025 20:47
[2025-02-23] MEDS: FUROSEMIDE 20 MG TAB PO ONE (15:42)
== END 2025-02-23 16:30 | disposition home or self-care (01) | DRG 321 ==
LOC: EDBD 10:16 → ER 10:32 → OVERFLOW 19:27 → TELE-WESTW 20:50
PROVIDERS: ADMIT Internal Medicine Geriatric Medicine; ATTEND Internal Medicine Geriatric Medicine
PROC: 027135Z Dilation of Coronary Artery, Two Arteries with Two Drug-eluting Intraluminal Devices, Percutaneous Approach (ICD-10-PCS; principal; 2025-02-18)
PROC: 4A023N7 Measurement of Cardiac Sampling and Pressure, Left Heart, Percutaneous Approach (ICD-10-PCS; 2025-02-18)
PROC: B211YZZ Fluoroscopy of Multiple Coronary Arteries using Other Contrast (ICD-10-PCS; 2025-02-18)
PROC: B215YZZ Fluoroscopy of Left Heart using Other Contrast (ICD-10-PCS; 2025-02-21)
PROC: B240ZZ3 Ultrasonography of Single Coronary Artery, Intravascular (ICD-10-PCS; 2025-02-21)
DX: I21.4 Non-ST elevation (NSTEMI) myocardial infarction (principal); I50.23 Acute on chronic systolic (congestive) heart failure; J15.69 Pneumonia due to other Gram-negative bacteria; J15.9 Unspecified bacterial pneumonia; I25.10 Atherosclerotic heart disease of native coronary artery without angina pectoris; Z20.822 Contact with and (suspected) exposure to COVID-19; I35.0 Nonrheumatic aortic (valve) stenosis; I44.0 Atrioventricular block, first degree; E78.5 Hyperlipidemia, unspecified; F17.210 Nicotine dependence, cigarettes, uncomplicated; I11.0 Hypertensive heart disease with heart failure; E66.9 Obesity, unspecified; Z95.2 Presence of prosthetic heart valve; Z68.30 Body mass index [BMI] 30.0-30.9, adult; Z88.8 Allergy status to other drugs, medicaments and biological substances; Z91.199 Patient's noncompliance with other medical treatment and regimen due to unspecified reason
CPT/HCPCS: 36415; 71045; 71275; 80048; 80061; 80202; 80307; 81001; 83605; 83735; 83880; 84443; 84484; 85025; 85610; 85730; 87070; 87081; 87205; 87426; 87804; 92941; 92978; 93005; 93306; 93458; 93970; 94640; 97110; 97116; 97163; 99152; 99291; C1887; G0378; J2250; J2405; J2543; Q9967